=== PATIENT | female | born 1955 | race Caucasian/White ===

== ENCOUNTER 2016-07-07 12:10 | Day surgery (SDC) | payer MEDICAID ==
[2016-07-07] MEDS ORDERED: NS 1,000 ML IV SCH (12:45)
[2016-07-07] MEDS ORDERED: MIDAZOLAM 2 MG/2 ML VIAL ONE ×2 (13:34)
[2016-07-07] MEDS ORDERED: ONDANSETRON 4 MG/2 ML VIAL ONE (13:35)
[2016-07-07] MEDS ORDERED: fentaNYL 100 MCG/2 ML INJ ONE (13:35)
[2016-07-07] MEDS ORDERED: IOPAMIDOL (ISOVUE-M 300) 15 ML VIAL IV ONE (14:33)
[2016-07-07] MEDS ORDERED: TRIAMCINOLONE ACETONIDE 200 MG/5 ML MDV IM ONE (14:34)
[2016-07-07] MEDS ORDERED: morphINE SR 15 MG TAB PO ONE (15:00)
--- NOTE | 2016-07-07 18:04 | IR ---
Lumbar epidural steroid injection History: Low back pain and right lower extremity radiculopathy. Consent: Risks and benefits of the procedure were discussed in detail, and informed consent was obta ined. The patient accepted risks of lack of therapeutic benefit, internal bleeding, infection, and a ccidental dural puncture. Medications: Intravenous conscious sedation and analgesia were given under my supervision. Vital sign s, pulse oximetry, and electrocardiogram were monitored. The patient received 3 milligrams of Versed and 150 micrograms of fentanyl intravenously. 8 mg of Ondansetron were given intravenously, prophylac tically. Start time: 1355. End time: 1405. Fluoroscopy time in minutes: 0.7. Estimated exposure in mGy: 37.8. Technique: With the patient prone, the low back was prepped and draped in sterile fashion. 1% Xylocai ne was used for local anesthetic. Multiplanar fluoroscopic guidance was used to help place an 18-gaug e Touhy needle into the back of the spinal canal eccentric rightward at the level of the interspace a t L5-S1. Epidural position was confirmed with 2.5 mL of Isovue-M 300. Spot images were taken before a nd after injection of 80 mg of Kenalog (2 mL) and 3 mL of preservative-free 1% Xylocaine. Spot images were obtained before and after injection of steroid and analgesic. The patient tolerated the procedu re well and was taken to the Postprocedural Recovery area for observation. Epidurogram: Eccentric rightward epidural contrast extends from L4 through S1. Mild features of assistant professor of education tito disk degeneration are noted at L2-L3. A short, curved metal yessi to the left of the umbilicus is c ompatible with umbilical jewelry. Impression: Eccentric rightward lumbar epidural injection of long-acting steroid and rapid-acting ane sthetic via L5-S1. - - - - - - - - - - - - - - - - - - - - - - - - - - - - - - - - - - - - - - - - - - - - (PQRS Measures: Current medications were listed in the medical record, including all known prescript ions, [id number] medications, herbal medications, and nutritional supplements. Tobacco Use: Non e. Prophylactic antibiotic: Unnecessary. VTE prophylaxis: Ordered to begin within 24 hours of pr ocedure.)
== END 2016-07-07 15:20 | disposition home or self-care (01) ==
LOC: FIMAGING 12:10
PROVIDERS: ATTEND Family Medicine
PROC: 3E0R3BZ Introduction of Anesthetic Agent into Spinal Canal, Percutaneous Approach (ICD-10-PCS; 2016-07-07)
PROC: 3E0R33Z Introduction of Anti-inflammatory into Spinal Canal, Percutaneous Approach (ICD-10-PCS; principal; 2016-07-07 14:15)
DX: M54.5 Low back pain (principal); M54.16 Radiculopathy, lumbar region; I10 Essential (primary) hypertension; B19.9 Unspecified viral hepatitis without hepatic coma; F17.200 Nicotine dependence, unspecified, uncomplicated
CPT/HCPCS: J2250; J2405; J3010; J3301; Q9967

== ENCOUNTER 2016-08-17 13:07 | Emergency (ER) | payer MEDICAID ==
--- NOTE | 2016-08-17 13:32 | EDPHY ---
H & P Stated Complaint: R SIDED ABDOMINAL PAIN SINCE WEDNESDAY, SENT BY MD Time Seen by Provider: 08/17/16 13:32 HPI/ROS: HPI CHIEF COMPLAINT: Abdominal pain HISTORY OF PRESENT ILLNESS: This patient very pleasant 60-year-old female, she presents emergency room with right lower quadrant abdominal pain. Patient tells me on Wednesday she developed abdominal pain and generalized abdominal discomfort abdominal bloating with nausea. She takes chronic pain medicine for chronic back and neck pain. She presents emergency room due to ongoing right lower quadrant pain. She went saw her primary care doctor today and was referred to the emergency room for further evaluation of her abdominal pain. Patient currently tells me abdominal pain is 6/10 right lower quadrant nonradiating. She does have associated nausea with this. No vomiting. No diarrhea. Past Medical History: Chronic back pain, chronic neck pain, hypertension, osteoporosis, GERD, depression, ?COPD Past Surgical History: Tonsillectomy, tubal ligation, bursa removed from right knee Social History: denies daily use of drugs alcohol tobacco products Family History: noncontributory ROS REVIEW OF SYSTEMS: A comprehensive 10 point review of systems is otherwise negative aside from elements mentioned in the history of present illness. Exam Constitutional triage nursing summary reviewed, vital signs reviewed, awake/ alert. Eyes normal conjunctivae and sclera, EOMI, PERRLA. HENT normal inspection, atraumatic, moist mucus membranes, no epistaxis, neck supple/ no meningismus, no raccoon eyes. Respiratory clear to auscultation bilaterally, normal breath sounds, no respiratory distress, no wheezing. Cardiovascular rate normal, regular rhythm, no murmur, no edema, distal pulses normal. Gastrointestinal soft, tender palpation right lower quadrant,, no rebound, no guarding, normal bowel sounds, no distension, no pulsatile mass. Genitourinary no CVA tenderness. Musculoskeletal no midline vertebral tenderness, full range of motion, no calf swelling, no tenderness of extremities, no meningismus, good pulses, neurovascularly intact. Skin pink, warm, & dry, no rash, skin atraumatic. Neurologic awake, alert and oriented x 3, AAOx3, moves all 4 extremities equally, motor intact, sensory intact, CN II-XII intact, normal cerebellar, normal vision, normal speech. Psychiatric normal mood/affect. Heme/Lymph/Immune no lymphadenopathy. Differential diagnosis includes but is not limited to and in no particular order : Bowel obstruction, appendicitis, gallbladder disease, diverticulitis, colitis , enteritis, perforated viscus, gastritis, GERD, esophagitis, urinary tract infection, pyelonephritis, kidney stones Medical Decision Making: this patient had an IV established obtain blood work, patient be placed on full nurse monitoring, patient will need a CT scan abdomen pelvis with IV contrast rule out acute appendicitis. Will gently hydrated with IV fluids normal saline, IV Dilaudid 1 mg for pain control, IV Zofran 4 mg for nausea. Re-evaluation: 1532: Re-examination at this time abdomen is soft nontender no guarding or peritoneal signs. Blood work, CT has been reviewed. CT scan of the abdomen pelvis with IV contrast. The results of the study are negative for acute inflammatory process, specifically no evidence of acute appendicitis The study was read by Dr. Gray. I viewed the images myself on the PACS system. 1533; I did go over this patient's CT results with the patient. She is comfortable being discharged. Urinalysis pending at this time. She does understand she develops any worsening abdominal pain, fever vomiting to return to the emergency room. Source: Patient - Personal History Current Tetanus Diphtheria and Acellular Pertussis (TDAP): Yes Tetanus Vaccine Date: < 10 years - Medical/Surgical History Hx Asthma: No Hx Chronic Respiratory Disease: No Hx Diabetes: No Hx Cardiac Disease: Yes Hx Renal Disease: No Hx Cirrhosis: No Hx Alcoholism: No Hx HIV/AIDS: No Hx Splenectomy or Spleen Trauma: No Other PMH: chronic back pain, hypertension, depression, neck problems, ovarian cysts, right knee bursa sac removal, tubal ligation, tonsillectomy - Social History Smoking Status: Former smoker Constitutional: Initial Vital Signs Temperature (C) 36.9 C 08/17/16 13:15 Heart Rate 85 08/17/16 13:15 Respiratory Rate 16 08/17/16 13:15 Blood Pressure 150/91 H 08/17/16 13:15 O2 Sat (%) 90 L 08/17/16 13:15 O2 Delivery Mode Room Air Allergies/Adverse Reactions: No Known Allergies Allergy (Unverified 08/17/16 13:18) Home Medications: Medication Instructions Recorded Abilify 08/17/16 Amitriptyline HCl 08/17/16 Cymbalta 08/17/16 Escitalopram Oxalate 08/17/16 FLUTICASONE PROPIONATE 08/17/16 Fosamax 70 MG (*) 08/17/16 Hydrochlorothiazide 08/17/16 Lidocaine 5% 08/17/16 Linzess 08/17/16 Morphine Sulfate 08/17/16 Ondansetron 08/17/16 Oxycodone HCl 08/17/16 Pataday 08/17/16 Proair Hfa Icu (*) 08/17/16 Ranitidine HCl 08/17/16 Tizanidine HCl 08/17/16 Voltaren 08/17/16 Medical Decision Making - Data Points Laboratory Results: Laboratory Results 08/17/16 13:33 08/17/16 13:33 08/17/16 13:33 WBC 5.98 10^3/uL (3.80-9.50) RBC 5.19 10^6/uL (4.18-5.33) Hgb 15.8 g/dL (12.6-16.3) Hct 45.7 % (38.0-47.0) MCV 88.1 fL (81.5-99.8) MCH 30.4 pg (27.9-34.1) MCHC 34.6 g/dL (32.4-36.7) RDW 13.4 % (11.5-15.2) Plt Count 320 10^3/uL (150-400) MPV 8.8 fL (8.7-11.7) Neut % (Auto) 63.4 % (39.3-74.2) Lymph % (Auto) 27.1 % (15.0-45.0) [place] % (Auto) 7.5 % (4.5-13.0) Eos % (Auto) 1.0 % (0.6-7.6) Baso % (Auto) 0.5 % (0.3-1.7) Nucleat RBC Rel Count 0.0 % (0.0-0.2) Absolute Neuts (auto) 3.79 10^3/uL (1.70-6.50) Absolute Lymphs (auto) 1.62 10^3/uL (1.00-3.00) Absolute Monos (auto) 0.45 10^3/uL (0.30-0.80) Absolute Eos (auto) 0.06 10^3/uL (0.03-0.40) Absolute Basos (auto) 0.03 10^3/uL (0.02-0.10) Absolute Nucleated RBC 0.00 10^3/uL (0-0.01) Immature Gran % 0.5 % (0.0-1.1) Immature Gran # 0.03 10^3/uL (0.00-0.10) PT 12.4 SEC (12.0-15.0) INR 0.93 (0.83-1.16) APTT 25.1 SEC (23.0-38.0) VBG Lactic Acid 1.0 mmol/L (0.7-2.1) Sodium 143 mEq/L (134-144) Potassium 3.7 mEq/L (3.5-5.2) Chloride 104 mEq/L (97-110) Carbon Dioxide 26 mEq/l (22-31) Anion Gap 13 mEq/L (8-16) BUN 9 mg/dL (7-23) Creatinine 0.7 mg/dL (0.6-1.0) Estimated GFR > 60 Glucose 100 mg/dL (70-100) Calcium 9.5 mg/dL (8.5-10.4) Total Bilirubin 0.6 mg/dL (0.1-1.4) Conjugated Bilirubin 0.4 mg/dL (0.0-0.5) Unconjugated Bilirubin 0.2 mg/dL (0.0-1.1) AST 35 IU/L (14-46) ALT 35 IU/L (9-52) Alkaline Phosphatase 88 IU/L (38-126) Total Protein 7.9 g/dL (6.3-8.2) Albumin 4.7 g/dL (3.5-5.0) Lipase 36.0 IU/L (23-300) Medications Given: Discontinued Medications Hydromorphone HCl (Dilaudid) 0.5 mg IVP EDNOW ONE Stop: 08/17/16 13:41 Last Admin: 08/17/16 15:13 Dose: 0.5 mg Hydromorphone HCl (Dilaudid) 1 mg IVP EDNOW ONE Stop: 08/17/16 13:40 Last Admin: 08/17/16 13:50 Dose: 1 mg Sodium Chloride (Ns) 1,000 mls @ 0 mls/hr IV ONCE ONE PRN Reason: Wide Open Stop: 08/17/16 13:40 Last Admin: 08/17/16 13:50 Dose: 1,000 mls Sodium Chloride (Ns) 1,000 mls @ 0 mls/hr IV ONCE ONE PRN Reason: Wide Open Stop: 08/17/16 13:41 Last Admin: 08/17/16 15:12 Dose: 1,000 mls Ondansetron HCl (Zofran) 4 mg IVP EDNOW ONE Stop: 08/17/16 13:40 Last Admin: 08/17/16 13:51 Dose: 4 mg Ondansetron HCl (Zofran) 4 mg IVP EDNOW ONE Stop: 08/17/16 13:40 Last Admin: 08/17/16 15:12 Dose: Not Given Departure - Departure Disposition: Home, Routine, Self-Care Clinical Impression: Abdominal pain Qualifiers: Abdominal location: right lower quadrant Qualifier Code: (R10.31) Right lower quadrant pain Abdominal pain Qualifiers: Abdominal location: right lower quadrant Qualifier Code: (R10.31) Right lower quadrant pain Condition: Good Instructions: Acute Abdominal Pain (ED) Additional Instructions: 1. Return emergency room if develops any worsening symptoms questions or concerns includes worsening abdominal pain, fever, vomiting. Referrals: Edd Lomeli MD [Primary Care Provider] - As per Instructions
[2016-08-17] MEDS ORDERED: ONDANSETRON 4 MG/2 ML VIAL ONE (13:34)
[2016-08-17] MEDS ORDERED: ONDANSETRON 4 MG/2 ML VIAL IVP ONE ×2 (13:39)
[2016-08-17] MEDS ORDERED: NS 1,000 ML IV ONE ×2 (13:39→13:40)
[2016-08-17] MEDS ORDERED: HYDROmorphONE/DILAUDID 1 MG/ML SYR IVP ONE ×2 (13:39→13:40)
[2016-08-17 14:02] LABS: % IMMATURE GRANULYOCYTES 0.5 % (0.0-1.1); ABSOLUTE IMMATURE GRANULOCYTES 0.03 10^3/uL (0.00-0.10); ADD DIFF? NO; ADD MORPH? NO; ADD SCAN? NO; ATYPICAL LYMPHOCYTE FLAG 0 (0-99); FRAGMENT RBC FLAG 0 (0-99); HEMATOCRIT 45.7 % (38.0-47.0); HEMOGLOBIN 15.8 g/dL (12.6-16.3); LEFT SHIFT FLG 0 (0-99); LIPEMIA HEMOLYSIS FLAG 90 (0-99); MEAN CELL HEMOGLOBIN 30.4 pg (27.9-34.1); MEAN CELL HEMOGLOBIN CONCENTR. 34.6 g/dL (32.4-36.7); MEAN CELL VOLUME 88.1 fL (81.5-99.8); MEAN PLATELET VOLUME 8.8 fL (8.7-11.7); PLATELET CLUMPS FLAG 20 (0-99); PLATELET COUNT 320 10^3/uL (150-400); RED BLOOD CELL COUNT 5.19 10^6/uL (4.18-5.33); RED CELL DISTRIBUTION WIDTH 13.4 % (11.5-15.2)
[2016-08-17 14:15] LABS: APTT 25.1 SEC (23.0-38.0); INR 0.93 (0.83-1.16); PROTIME(PATIENT) 12.4 SEC (12.0-15.0)
[2016-08-17 14:21] LABS: ALANINE AMINOTRANSFERASE 35 IU/L (9-52); ALBUMIN 4.7 g/dL (3.5-5.0); ALKALINE PHOSPHATASE 88 IU/L (38-126); ANION GAP 13 mEq/L (8-16); ASPARTATE AMINOTRANSFERASE 35 IU/L (14-46); BILIRUBIN,TOTAL 0.6 mg/dL (0.1-1.4); BILIRUBIN-CONJUGATED 0.4 mg/dL (0.0-0.5); BILIRUBIN-UNCONJUGATED 0.2 mg/dL (0.0-1.1); CALCIUM 9.5 mg/dL (8.5-10.4); CARBON DIOXIDE 26 mEq/l (22-31); CHLORIDE 104 mEq/L (97-110); CREATININE 0.7 mg/dL (0.6-1.0); GLOMERULAR FILTRATION RATE > 60; GLUCOSE 100 mg/dL (70-100); POTASSIUM 3.7 mEq/L (3.5-5.2); SODIUM 143 mEq/L (134-144); TOTAL PROTEIN 7.9 g/dL (6.3-8.2)
[2016-08-17] MEDS ORDERED: IOPAMIDOL (ISOVUE-300) 100 ML BTL IV ONE (14:32)
--- NOTE | 2016-08-17 15:24 | CT ---
CT Scan of the Abdomen and Pelvis (With Contrast) 1442 hours History: Right-sided abdominal pain. Technique: Axial computed tomographic images of the abdomen and pelvis were obtained with the unevent ful intravenous administration of 90 mL Isovue-300 contrast. . Images were reviewed in multiple plane s. Dose reduction techniques were utilized. CT Abdomen and Pelvis Findings: Comparison to prior CT study of 07/13/2015. Lung bases: Normal. Liver: There are stable cysts within the left lobe of liver. No new or significant liver lesion is se en. Spleen: Normal. Gallbladder and Bile Ducts: Normal. Pancreas: Normal. Adrenals: Normal. Kidneys: No obstruction or solid masses. There are a few small less than 5 mm presumed cysts associat ed with each kidney similar to the prior study. Abdominal Aorta: No aneurysm. Pelvic structures: The uterus has a normal contour. The ovaries are normal in size. No adnexal mass i s seen. Bladder: Normal. Appendix: Normal. Bowel Loops: Normal. No bowel obstruction, ascites, or significant retroperitoneal lymphadenopathy. Skeletal system: Vertebral body heights are well-maintained. There are no significant lytic or scler otic osseous lesions. Impression: 1. Incidental cysts in the liver and kidneys stable in appearance. 2. No CT evidence of appendicitis, abscess or bowel obstruction. These findings were discussed by telephone with Dr. Kyle Fowler at 1523 hrs.
[2016-08-17 15:59] LABS: COLOR PALE YELLOW; LEUKOCYTE ESTERASE,URINE NEGATIVE (NEGATIVE); NITRITE,URINE NEGATIVE (NEGATIVE)
[2016-08-17] MEDS ORDERED: ONDANSETRON DISINTEGRATING 4 MG TAB ONE (16:03)
[2016-08-17] MEDS ORDERED: ONDANSETRON DISINTEGRATING 4 MG TAB PO ONE (16:04)
[2016-08-17 16:13] VITALS: BP 133/81; PULSE 88; RESP 18; TEMP 98; O2SAT 93
== END 2016-08-17 16:08 | disposition home or self-care (01) ==
DX: R10.31 Right lower quadrant pain (principal); Z87.891 Personal history of nicotine dependence; Z98.51 Tubal ligation status
CPT/HCPCS: 96374; J1170; J2405; Q9967

== ENCOUNTER 2016-09-22 15:37 | Emergency (ER) | payer MEDICAID ==
--- NOTE | 2016-09-22 16:25 | EDPHY ---
General Narrative: CHIEF COMPLAINT: Cough, fever HISTORY OF PRESENT ILLNESS: 2 day history of cough and fever. Symptoms started abruptly yesterday. Some body aches but no chills. Fever has been intermittently waxing wheezing with ibuprofen frequently. She has no chest pain. She does have a painful cough. She has no shortness of breath. She has no abdominal pain. No nausea or vomiting. No urinary complaints. The cough is mostly nonproductive. No particular ability to the severity of this. No other associated complaints or modifying factors. REVIEW OF SYSTEMS: Ten systems reviewed and are negative unless otherwise noted in the HPI PERTINENT MEDICAL HISTORY: EXAMINATION General Appearance: Alert, no distress Head: normocephalic, atraumatic Eyes: Pupils equal and round, no conjunctival pallor or injection ENT, Mouth: Mucous membranes moist . Uvula midline. No erythema or edema. Neck: Normal inspection, supple, non-tender . No meningismus. Respiratory: Lungs are clear to auscultation . No wheezing, rhonchi or crackles. Cardiovascular: Regular rate and rhythm . No murmur. Pulses intact distally prior Gastrointestinal: Abdomen is soft and nontender. No tympany or rigidity. Back: non-tender, no bony abnormalities Neurological: A&O, nonfocal, normal gait Skin: Warm and dry, no rash Extremities: Nontender, no pedal edema Psychiatric: Mood and affect normal DIFFERENTIAL DIAGNOSES: Including but not limited to Influenza, bronchitis, pneumonia, COPD, viral illness MDM: 4:15 p.m. cough and fever with normal auscultation. She does have a history of smoking but not COPD. She is in no acute distress. She has no other abnormality on examination. Influenza swab has been ordered as well as a chest x-ray. Plan for treatment for the possibility of pneumonia as she does have history of smoking and she has a granddaughter who was recently diagnosed with pneumonia. 5:10 p.m. cough with reports of fever at home. She is afebrile here and oxygenating well. No abnormality on auscultation. Possible atelectasis versus bronchitis on chest x-ray. No definite pneumonia or consolidation. I will treat her presumptively for pneumonia given that she is a smoker. Also provide eye prescription for Tessalon Perles and albuterol. She is to follow up with primary care physician and return here should her symptoms worsen. He is also to return for any chest pain. She is comfortable with this plan and discharged home stable condition. SUPERVISION: This patient was independently evaluated without the aide of supervising physician. - History Smoking Status: Former smoker - Objective Vital Signs: Initial Vital Signs Temperature (C) 98.4 F 09/22/16 15:45 Heart Rate 105 H 09/22/16 15:45 Respiratory Rate 16 09/22/16 15:45 Blood Pressure 116/72 09/22/16 15:45 O2 Sat (%) 93 09/22/16 15:45 O2 Delivery Mode Room Air Allergies/Adverse Reactions: No Known Allergies Allergy (Verified 09/22/16 15:49) Home Medications: Medication Instructions Recorded Abilify 08/17/16 Amitriptyline HCl 08/17/16 Cymbalta 08/17/16 FLUTICASONE PROPIONATE 08/17/16 Fosamax 70 MG (*) 08/17/16 Hydrochlorothiazide 08/17/16 Lidocaine 5% 08/17/16 Linzess 08/17/16 Morphine Sulfate 08/17/16 Ondansetron 08/17/16 Oxycodone HCl 08/17/16 Pataday 08/17/16 Proair Hfa Icu (*) 08/17/16 Ranitidine HCl 08/17/16 Tizanidine HCl 08/17/16 Voltaren 08/17/16 Acyclovir 09/22/16 Albuterol [Proventil Inhaler HFA 1 - 2 puffs IH Q4H PRN #1 mdi 09/22/16 (*)] Azithromycin [Zithromax] 250 mg PO DAILY #6 tab 09/22/16 Benzonatate [Tessalon Pearles (RX)] 100 mg PO Q8 PRN #15 cap 09/22/16 DULoxetine 09/22/16 Dexamethasone [Decadron 4 MG (*)] 8 mg PO DAILY #2 tab 09/22/16 Departure - Departure Disposition: Home, Routine, Self-Care Clinical Impression: Bronchitis Condition: Good Instructions: Acute Bronchitis (ED) Additional Instructions: medications as prescribed. Ibuprofen [id number] as needed every 6-8 hours. Return to ER for worsening symptoms, any chest pain or persistent fever greater than 2 days Referrals: NONE *PRIMARY CARE P,. [Primary Care Provider] - As per Instructions Ignacia Aguila MD [Medical Doctor] - As per Instructions Prescriptions: Albuterol [Proventil Inhaler HFA (*)] 1 - 2 puffs IH Q4H PRN #1 mdi PRN Reason: Short Of Breath/Dyspnea Azithromycin [Zithromax] 250 mg PO DAILY #6 tab Benzonatate [Tessalon Pearles (RX)] 100 mg PO Q8 PRN #15 cap PRN Reason: Cough, Mild Dexamethasone [Decadron 4 MG (*)] 8 mg PO DAILY #2 tab
[2016-09-22 17:50] VITALS: BP 103/62; PULSE 89; RESP 18; TEMP 98.8; O2SAT 91
== END 2016-09-22 17:50 | disposition home or self-care (01) ==
DX: J20.9 Acute bronchitis, unspecified (principal); Z87.891 Personal history of nicotine dependence

== ENCOUNTER 2016-09-27 11:18 | Inpatient (IN) | payer MEDICAID ==
[2016-09-27] MEDS ORDERED: ACETAMINOPHEN 500 MG TAB ONE (11:30)
--- NOTE | 2016-09-27 11:39 | CPEKG ---
Heart Rate: 71 RR Interval: 845 P-R Interval: 136 QRSD Interval: 92 QT Interval: 376 QTC Interval: 409 P [place]: 41 QRS [place]: 24 T Wave [place]: 51 EKG Severity - OTHERWISE NORMAL ECG - EKG Impression: SINUS RHYTHM EKG Impression: LOW VOLTAGE IN FRONTAL LEADS Electronically Signed By: Sammy Landa 27-Sep-2016 11:49:18
[2016-09-27] MEDS ORDERED: ACETAMINOPHEN 500 MG TAB PO ONE (11:40)
[2016-09-27] MEDS ORDERED: IPRATROPIUM/ALBUTEROL 3 ML DEYVIAL IH ONE (11:46)
--- NOTE | 2016-09-27 11:49 | EDPHY ---
H & P Time Seen by Provider: 09/27/16 11:39 HPI/ROS: CHIEF COMPLAINT: Can't hardly breathe HISTORY OF PRESENT ILLNESS: This 60-year-old woman was seen in the emergency department on the 22 of September and was prescribed azithromycin for bronchitis and had a negative chest x-ray for pneumonia. Symptoms started around September 20, and a continuous until today. She is feeling worse today with increasing cough and fever and chills. Symptoms are severe and worse with any exertion. She feels wheezy and has chest tightness. She is not coughing up sputum. Her symptoms are not markedly helped by the inhaler she was prescribed. REVIEW OF SYSTEMS: Eye: no change in vision ENT: no sore throat, left earache Cardiac: no chest pain or syncope Pulmonary: HPI, no hemoptysis Abdomen: no vomiting, diarrhea, abdominal pain Musculoskeletal: Chronic back pain unchanged Skin: no rash Neuro: Headache which is present only with cough. Constitutional: Fever and chills : Decreased urination, no dysuria A comprehensive 10 point review of systems is otherwise negative aside from elements mentioned in the history of present illness. PAST MEDICAL HISTORY: Includes hypertension, depression, chronic back pain, tonsillectomy, tubal ligation. Social history: Quit smoking 1 week ago General Appearance: Alert and conversant, cooperative. Eyes: No scleral icterus. ENT, Mouth: Normal mucous membranes. Normal tympanic membranes bilaterally. Normal pharynx. Respiratory: Bilateral expiratory wheezing with right-sided rhonchi. Oxygen saturation 86%. Cardiovascular: Regular rate and rhythm. Gastrointestinal: Abdomen is soft and non tender. Neurological: Alert and oriented x3. Normally conversant. Face symmetric, normal movement and sensation in all extremities. Skin: Warm and dry, no rashes. Musculoskeletal: No peripheral edema and no joint swelling. No calf tenderness. Psychiatric: Not agitated. Emergency Department course/MDM: DuoNeb, testing to include repeat chest x-ray and lactate and influenza. Supplemental oxygen applied to increase saturations to the 90s. Will require admission the hospital for hypoxemia and failure of outpatient oral antibiotic therapy. 1235: Results discussed with the patient, doubt acute bacterial infection at this time, needs to be admitted for continued therapy and supplemental oxygen with bronchospasm and hypoxemia. Ordered: albuterol nebulizer, Solu-Medrol 125 mg IV, Levaquin 750 mg IV. Does not meet SIRS criteria. Is febrile but respiratory rate less than 20, heart rate less than 100, white blood cell count 9.74. Patient was given her usual oral pain medication. Smoking Status: Former smoker Constitutional: Initial Vital Signs Temperature (C) 38 C 09/27/16 11:22 Heart Rate 86 09/27/16 11:22 Respiratory Rate 18 09/27/16 11:22 Blood Pressure 103/53 L 09/27/16 11:22 O2 Sat (%) 86 L 09/27/16 11:22 O2 Delivery Mode Nasal Cannula O2 (L/minute) 2 Allergies/Adverse Reactions: No Known Allergies Allergy (Verified 09/22/16 15:49) Home Medications: Medication Instructions Recorded ARIPiprazole [Abilify 10 mg (*)] 10 mg PO DAILY 09/27/16 Amitriptyline HCl [Elavil] 25 mg PO HS 09/27/16 DULoxetine [Cymbalta 30 MG (*)] 30 mg PO DAILY 09/27/16 Fluticasone Nasal [Flonase Nasal 1 sprays NASAL DAILY 09/27/16 [place] (RX)] Hydrochlorothiazide [HCTZ (*)] 25 mg PO DAILY 09/27/16 Ibuprofen [Motrin (*)] 800 mg PO Q6 PRN 09/27/16 Lidocaine 5% [Lidoderm 5% Patch 1 ea TD DAILY 09/27/16 (*)] Linaclotide [Linzess] 290 mcg PO DAILY 09/27/16 Morphine Sulfate [Ms Contin] 15 mg PO Q6H 09/27/16 Olopatadine HCl [Pataday] 1 drop EACHEYE HS PRN 09/27/16 Ondansetron Odt [Zofran Odt 4 mg 4 mg PO Q4 PRN 09/27/16 (*)] Tizanidine HCl 4 mg PO HS 09/27/16 Tizanidine HCl 4 mg PO QID PRN 09/27/16 oxyCODONE IR [Oxycodone Ir (*)] 20 mg PO QID 09/27/16 Medical Decision Making - Diagnostics EKG Interpretation: 12-lead EKG interpreted by me; official reading is in trace master. My interpretation is sinus rhythm with low voltage in frontal leads but no acute ischemic changes rate 71. Imagin: Chest x-ray personally interpreted by myself shows atelectasis left lower lobe and airway disease but not pneumonia. Differential Diagnosis: Differential diagnosis considered for shortness of breath including but not limited to pulmonary infectious process, COPD, asthma, pulmonary embolus and congestive heart failure. Consult/Admit Bed Type: [place] [id number] - Data Points Laboratory Results: Laboratory Results 09/27/16 11:33 09/27/16 11:33 09/27/16 09/27/16 09/27/16 11:57 11:33 11:33 WBC RBC Hgb Hct MCV MCH MCHC RDW Plt Count MPV Neut % (Auto) Lymph % (Auto) [place] % (Auto) Eos % (Auto) Baso % (Auto) Nucleat RBC Rel Count Absolute Neuts (auto) Absolute Lymphs (auto) Absolute Monos (auto) Absolute Eos (auto) Absolute Basos (auto) Absolute Nucleated RBC Immature Gran % Immature Gran # PT 13.3 SEC SEC (12.0-15.0) INR 1.02 (0.83-1.16) APTT 28.4 SEC SEC (23.0-38.0) VBG Lactic Acid Sodium 137 mEq/L mEq/L (134-144) Potassium 3.3 mEq/L L mEq/L (3.5-5.2) Chloride 99 mEq/L mEq/L (97-110) Carbon Dioxide 28 mEq/l mEq/l (22-31) Anion Gap 10 mEq/L mEq/L (8-16) BUN 12 mg/dL mg/dL (7-23) Creatinine 0.7 mg/dL mg/dL (0.6-1.0) Estimated GFR > 60 Glucose 102 mg/dL H mg/dL (70-100) Calcium 9.1 mg/dL mg/dL (8.5-10.4) Total Bilirubin 0.9 mg/dL mg/dL (0.1-1.4) Influenza Typ A,B (DFA) NEGATIVE FOR FLU (NEGATIVE) 09/27/16 09/27/16 11:33 11:33 WBC 9.74 10^3/uL H 10^3/uL (3.80-9.50) RBC 4.60 10^6/uL 10^6/uL (4.18-5.33) Hgb 13.4 g/dL g/dL (12.6-16.3) Hct 39.3 % % (38.0-47.0) MCV 85.4 fL fL (81.5-99.8) MCH 29.1 pg pg (27.9-34.1) MCHC 34.1 g/dL g/dL (32.4-36.7) RDW 13.8 % % (11.5-15.2) Plt Count 296 10^3/uL 10^3/uL (150-400) MPV 9.1 fL fL (8.7-11.7) Neut % (Auto) 70.1 % % (39.3-74.2) Lymph % (Auto) 20.0 % % (15.0-45.0) [place] % (Auto) 8.2 % % (4.5-13.0) Eos % (Auto) 1.0 % % (0.6-7.6) Baso % (Auto) 0.3 % % (0.3-1.7) Nucleat RBC Rel Count 0.0 % % (0.0-0.2) Absolute Neuts (auto) 6.82 10^3/uL H 10^3/uL (1.70-6.50) Absolute Lymphs (auto) 1.95 10^3/uL 10^3/uL (1.00-3.00) Absolute Monos (auto) 0.80 10^3/uL 10^3/uL (0.30-0.80) Absolute Eos (auto) 0.10 10^3/uL 10^3/uL (0.03-0.40) Absolute Basos (auto) 0.03 10^3/uL 10^3/uL (0.02-0.10) Absolute Nucleated RBC 0.00 10^3/uL 10^3/uL (0-0.01) Immature Gran % 0.4 % % (0.0-1.1) Immature Gran # 0.04 10^3/uL 10^3/uL (0.00-0.10) PT INR APTT VBG Lactic Acid 0.7 mmol/L mmol/L (0.7-2.1) Sodium Potassium Chloride Carbon Dioxide Anion Gap BUN Creatinine Estimated GFR Glucose Calcium Total Bilirubin Influenza Typ A,B (DFA) Medications Given: Discontinued Medications Acetaminophen (Tylenol) 1,000 mg PO EDNOW ONE Stop: 09/27/16 11:41 Last Admin: 09/27/16 11:43 Dose: 1,000 mg Albuterol (Proventil Neb) 3 ml IH EDNOW ONE Stop: 09/27/16 12:35 Last Admin: 09/27/16 12:57 Dose: 3 ml Albuterol/Ipratropium (Duoneb) 3 ml IH EDNOW ONE Stop: 09/27/16 11:47 Last Admin: 09/27/16 11:57 Dose: 3 ml Levofloxacin/Dextrose (Levaquin 750 Mg (Premix)) 150 mls @ 100 mls/hr IV EDNOW ONE PRN Reason: Protocol Stop: 09/27/16 14:04 Last Admin: 09/27/16 12:57 Dose: 150 mls Methylprednisolone Sodium Succinate (Solu-Medrol) 125 mg IVP EDNOW ONE Stop: 09/27/16 12:35 Last Admin: 09/27/16 12:57 Dose: 125 mg Morphine Sulfate (Ms Contin/Oramorph) 15 mg PO ONCE ONE Stop: 09/27/16 12:32 Last Admin: 09/27/16 12:58 Dose: 15 mg Oxycodone HCl (Oxycontin) 20 mg PO EDNOW ONE Stop: 09/27/16 12:32 Last Admin: 09/27/16 12:45 Dose: Not Given Oxycodone HCl (Oxycodone Ir) 20 mg PO ONCE ONE Stop: 09/27/16 12:40 Last Admin: 09/27/16 12:46 Dose: Not Given Oxycodone HCl (Oxycodone Ir) 20 mg PO EDNOW ONE Stop: 09/27/16 12:47 Last Admin: 09/27/16 12:56 Dose: 20 mg Departure - Departure Disposition: [facility] Acute Clinical Impression: Hypoxemia Acute bronchitis Qualifiers: Bronchitis organism: unspecified organism Qualified Code(s): J20.9 - Acute bronchitis, unspecified Condition: Fair
[2016-09-27 11:51] LABS: % IMMATURE GRANULYOCYTES 0.4 % (0.0-1.1); ABSOLUTE IMMATURE GRANULOCYTES 0.04 10^3/uL (0.00-0.10); ADD DIFF? NO; ADD MORPH? NO; ADD SCAN? NO; ATYPICAL LYMPHOCYTE FLAG 40 (0-99); FRAGMENT RBC FLAG 0 (0-99); HEMATOCRIT 39.3 % (38.0-47.0); HEMOGLOBIN 13.4 g/dL (12.6-16.3); LEFT SHIFT FLG 0 (0-99); LIPEMIA HEMOLYSIS FLAG 90 (0-99); MEAN CELL HEMOGLOBIN 29.1 pg (27.9-34.1); MEAN CELL HEMOGLOBIN CONCENTR. 34.1 g/dL (32.4-36.7); MEAN CELL VOLUME 85.4 fL (81.5-99.8); MEAN PLATELET VOLUME 9.1 fL (8.7-11.7); PLATELET CLUMPS FLAG 0 (0-99); PLATELET COUNT 296 10^3/uL (150-400); RED CELL DISTRIBUTION WIDTH 13.8 % (11.5-15.2)
[2016-09-27 12:01] LABS: INR 1.02 (0.83-1.16); PROTIME(PATIENT) 13.3 SEC (12.0-15.0)
[2016-09-27 12:02] LABS: APTT 28.4 SEC (23.0-38.0)
[2016-09-27 12:12] LABS: ANION GAP 10 mEq/L (8-16); BILIRUBIN,TOTAL 0.9 mg/dL (0.1-1.4); CALCIUM 9.1 mg/dL (8.5-10.4); CARBON DIOXIDE 28 mEq/l (22-31); CHLORIDE 99 mEq/L (97-110); CREATININE 0.7 mg/dL (0.6-1.0); GLOMERULAR FILTRATION RATE > 60; GLUCOSE 102 mg/dL (70-100); POTASSIUM 3.3 mEq/L (3.5-5.2); SODIUM 137 mEq/L (134-144)
[2016-09-27] MEDS ORDERED: morphINE SR 15 MG TAB PO ONE (12:31)
[2016-09-27] MEDS ORDERED: ALBUTEROL 3 ML DEYVIAL IH ONE (12:34)
[2016-09-27] MEDS ORDERED: methylPREDNISolone SOD SUCC 125 MG/2 ML VIAL IVP ONE (12:34)
[2016-09-27] MEDS ORDERED: oxyCODONE IR 15 MG TAB PO ONE (12:39)
[2016-09-27] MEDS ORDERED: oxyCODONE IR 5 MG TAB ONE (12:42)
[2016-09-27] MEDS ORDERED: oxyCODONE IR 5 MG TAB PO ONE (12:46)
[2016-09-27] MEDS ORDERED: ALBUTEROL 3 ML DEYVIAL IH PRN (13:13)
[2016-09-27] MEDS ORDERED: ACETAMINOPHEN 325 MG TAB PO PRN (13:13)
[2016-09-27] MEDS ORDERED: ONDANSETRON DISINTEGRATING 4 MG TAB PO PRN (13:13)
[2016-09-27] MEDS ORDERED: ONDANSETRON 4 MG/2 ML VIAL IVP PRN (13:13)
[2016-09-27] MEDS ORDERED: IBUPROFEN 800 MG TAB PO PRN (13:18)
[2016-09-27] MEDS ORDERED: OLOPATADINE 0.1% 5 ML OPHT.BTL EACHEYE PRN (13:18)
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
[2016-09-27] MEDS: morphINE SR 15 MG TAB PO SCH ×2 (15:30→20:05)
[2016-09-27] MEDS: oxyCODONE IR 5 MG TAB PO SCH ×2 (16:58→20:06)
[2016-09-27] MEDS: IPRATROPIUM/ALBUTEROL 3 ML DEYVIAL IH SCH ×2 (17:04→20:25)
[2016-09-27] MEDS: AMITRIPTYLINE HCL 25 MG TAB PO SCH (20:05)
[2016-09-28] MEDS: morphINE SR 15 MG TAB PO SCH ×4 (01:34→21:46)
[2016-09-28 04:50] LABS: % IMMATURE GRANULYOCYTES 0.5 % (0.0-1.1); ABSOLUTE IMMATURE GRANULOCYTES 0.05 10^3/uL (0.00-0.10); ADD DIFF? NO; ADD MORPH? NO; ADD SCAN? NO; ATYPICAL LYMPHOCYTE FLAG 0 (0-99); FRAGMENT RBC FLAG 0 (0-99); HEMATOCRIT 35.6 % (38.0-47.0); LEFT SHIFT FLG 0 (0-99); LIPEMIA HEMOLYSIS FLAG 80 (0-99); MEAN CELL HEMOGLOBIN 29.5 pg (27.9-34.1); MEAN CELL HEMOGLOBIN CONCENTR. 33.7 g/dL (32.4-36.7); MEAN CELL VOLUME 87.5 fL (81.5-99.8); MEAN PLATELET VOLUME 9.2 fL (8.7-11.7); PLATELET CLUMPS FLAG 10 (0-99); PLATELET COUNT 311 10^3/uL (150-400); RED BLOOD CELL COUNT 4.07 10^6/uL (4.18-5.33); RED CELL DISTRIBUTION WIDTH 13.5 % (11.5-15.2)
[2016-09-28 05:00] LABS: ANION GAP 10 mEq/L (8-16); CALCIUM 9.2 mg/dL (8.5-10.4); CARBON DIOXIDE 27 mEq/l (22-31); CHLORIDE 100 mEq/L (97-110); CREATININE 0.6 mg/dL (0.6-1.0); GLOMERULAR FILTRATION RATE > 60; GLUCOSE 237 mg/dL (70-100); POTASSIUM 3.8 mEq/L (3.5-5.2); SODIUM 137 mEq/L (134-144)
[2016-09-28] MEDS: oxyCODONE IR 5 MG TAB PO SCH ×4 (05:29→21:46)
[2016-09-28] MEDS: IPRATROPIUM/ALBUTEROL 3 ML DEYVIAL IH SCH ×4 (05:33→21:25)
[2016-09-28] MEDS ORDERED: IOPAMIDOL (ISOVUE 370) 100 ML BTL IV ONE (08:58)
[2016-09-28] MEDS ORDERED: levOFLOXACIN 500 MG/DEXTROSE 100 ML IV SCH (09:00)
[2016-09-28] MEDS: predniSONE 20 MG TAB PO SCH (09:57)
[2016-09-28] MEDS: ARIPiprazole 10 MG TAB PO SCH (09:57)
[2016-09-28] MEDS: LIDOCAINE 5% 1 EA PATCH TD SCH (09:57)
[2016-09-28] MEDS: HYDROCHLOROTHIAZIDE 25 MG TAB PO SCH (09:57)
[2016-09-28] MEDS: DULoxetine 30 MG CAP PO SCH (09:57)
[2016-09-28] MEDS: ENOXAPARIN 40 MG/0.4 ML SYR SC SCH (09:58)
[2016-09-28] MEDS: FLUTICASONE NASAL 120 SPRAYS/16 GM MDI EACHNARE SCH (09:59)
[2016-09-28] MEDS ORDERED: MAGNESIUM HYDROXIDE 30 ML UDCUP PO PRN (10:53)
[2016-09-28] MEDS ORDERED: BISACODYL 10 MG SUPP PR PRN (10:53)
[2016-09-28] MEDS ORDERED: LACTULOSE 20 GM/30 ML UDCUP PO PRN (10:53)
[2016-09-28] MEDS: POLYETHYLENE GLYCOL 3350 17 GM PKT PO PRN (12:05)
--- NOTE | 2016-09-28 14:01 | HOSPPROG ---
Hospitalist Progress Note Assessment/Plan: # Community-acquired pneumonia- chest x-ray ( personally reviewed and interpreted) new left lower lobe infiltrate - Blood cultures - NGTD patient remains very dyspneic overnight reports very little improvement in her cough or breathlessness reports persistent chest tightness with inspiration in the subxiphoid area - check CT PE to rule out pulmonary embolism and visualized lung parenchyma - continue empiric levofloxacin # Acute hypoxic respiratory failure -2/2 community-acquired pneumonia and reactive airways- wheezing on examination oxygen saturations 92% on 3 L - continue antibiotics - continue inhaled beta agonists - continue p.o. prednisone - rule out PE as above # chronic musculoskeletal pain on continuous narcotics- continue home medication - start aggressive bowel regimen # prophylaxis Lovenox # diet regular # disposition greater than 2 midnights as the patient requiring ongoing aggressive pulmonary care for community-acquired pneumonia I have discussed the case with the RN- will send patient for additional CT imaging to rule out pulmonary embolism Subjective: remains very dyspneic Objective: Vital Signs Temp Pulse Resp BP Pulse Ox 36.6 C 97 10 L 122/55 H 93 09/28/16 11:08 09/28/16 11:08 09/28/16 11:08 09/28/16 11:08 09/28/16 11:08 Laboratory Results 09/28/16 04:15 09/28/16 04:15 09/27/16 09/28/16 09/29/16 05:59 05:59 05:59 Intake Total 150 Balance 150 PT 13.3 SEC (12.0-15.0) 09/27/16 11:33 INR 1.02 (0.83-1.16) 09/27/16 11:33 - Physical Exam Constitutional: appears nourished Eyes: anicteric sclera Ears, Nose, Mouth, Throat: moist mucous membranes Cardiovascular: regular rate and rhythym Respiratory: no respiratory distress, expiratory wheeze Gastrointestinal: normoactive bowel sounds, soft, non-tender abdomen Genitourinary: no bladder fullness Skin: warm, normal color Musculoskeletal: No asymmetric calves Neurologic: AAOx3 Psychiatric: interacting appropriately Lymph, Heme, Immunologic: no cervical LAD ICD10 Worksheet Patient Problems: Problems Problem Status Onset Acute bronchitis Acute Hypoxemia Acute Chest pain Acute
[2016-09-28] MEDS ORDERED: PNEUMOCOCCAL 0.5ML VACCINE VIAL IM ONE (15:45)
[2016-09-28] MEDS ORDERED: TEMAZEPAM 15 MG CAP PO PRN ×2 (19:55→23:20)
[2016-09-28] MEDS: AMITRIPTYLINE HCL 25 MG TAB PO SCH (21:47)
[2016-09-28] MEDS: SENNOSIDES/DOCUSATE SODIUM TAB PO SCH (21:47)
[2016-09-28] MEDS: PATCH REMOVAL 1 EA PATCH TD SCH (23:34)
[2016-09-29] MEDS: morphINE SR 15 MG TAB PO SCH ×5 (04:18→23:31)
[2016-09-29] MEDS: oxyCODONE IR 5 MG TAB PO SCH ×4 (04:20→23:31)
[2016-09-29 05:03] LABS: ANION GAP 10 mEq/L (8-16); CALCIUM 9.5 mg/dL (8.5-10.4); CARBON DIOXIDE 27 mEq/l (22-31); CHLORIDE 103 mEq/L (97-110); CREATININE 0.6 mg/dL (0.6-1.0); GLOMERULAR FILTRATION RATE > 60; GLUCOSE 140 mg/dL (70-100); POTASSIUM 4.2 mEq/L (3.5-5.2); SODIUM 140 mEq/L (134-144)
[2016-09-29] MEDS: IPRATROPIUM/ALBUTEROL 3 ML DEYVIAL IH SCH ×4 (06:15→21:04)
[2016-09-29] MEDS: ENOXAPARIN 40 MG/0.4 ML SYR SC SCH (08:37)
[2016-09-29] MEDS: HYDROCHLOROTHIAZIDE 25 MG TAB PO SCH (08:37)
[2016-09-29] MEDS: predniSONE 20 MG TAB PO SCH (08:38)
[2016-09-29] MEDS: SENNOSIDES/DOCUSATE SODIUM TAB PO SCH ×2 (08:38→21:24)
[2016-09-29] MEDS: ARIPiprazole 10 MG TAB PO SCH (08:38)
[2016-09-29] MEDS: DULoxetine 30 MG CAP PO SCH (08:38)
[2016-09-29] MEDS: LIDOCAINE 5% 1 EA PATCH TD SCH (08:40)
[2016-09-29] MEDS: FLUTICASONE NASAL 120 SPRAYS/16 GM MDI EACHNARE SCH (08:41)
[2016-09-29] MEDS: POLYETHYLENE GLYCOL 3350 17 GM PKT PO PRN (09:02)
--- NOTE | 2016-09-29 11:41 | HOSPPROG ---
Hospitalist Progress Note Assessment/Plan: # Community-acquired pneumonia- CT PE ( personally reviewed and interpreted) no PE - left lower lobe infiltrate - Blood cultures remain NGTD dyspnea has improved some overnight- still with lightheadedness and weakness when ambulating to the bathroom - continue empiric levofloxacin # Acute hypoxic respiratory failure -2/2 community-acquired pneumonia and reactive airways- wheezing diffusely still on examination oxygen saturations 93% on 2 L - continue antibiotics - continue inhaled beta agonists - continue p.o. prednisone - [place] suspect she will have wound remaining oxygen needs post disposition # chronic musculoskeletal pain on continuous narcotics- continue home medication- creatinine normal this a.m. - start aggressive bowel regimen # prophylaxis Lovenox # diet regular # disposition greater than 2 midnights as the patient requiring ongoing aggressive pulmonary care for community-acquired pneumonia I have discussed the case with the RN- we will continue current care with anticipated disposition home with supplemental oxygen tomorrow Subjective: breathing at rest is easier exertion still very dyspneic Objective: Vital Signs Temp Pulse Resp BP Pulse Ox 36.6 C 79 20 130/75 H 93 09/29/16 11:16 09/29/16 11:16 09/29/16 11:16 09/29/16 11:16 09/29/16 11:16 Laboratory Results 09/29/16 04:13 09/28/16 09/29/16 09/30/16 05:59 05:59 05:59 Intake Total 450 Balance 450 PT 13.3 SEC (12.0-15.0) 09/27/16 11:33 INR 1.02 (0.83-1.16) 09/27/16 11:33 - Physical Exam Constitutional: appears nourished Eyes: anicteric sclera Ears, Nose, Mouth, Throat: moist mucous membranes Cardiovascular: regular rate and rhythym Respiratory: expiratory wheeze Gastrointestinal: normoactive bowel sounds Genitourinary: no bladder fullness Skin: warm, normal color Musculoskeletal: No asymmetric calves Neurologic: AAOx3 Psychiatric: interacting appropriately, not anxious Lymph, Heme, Immunologic: no cervical LAD ICD10 Worksheet Patient Problems: Problems Problem Status Onset Acute bronchitis Acute Hypoxemia Acute Chest pain Acute
[2016-09-29] MEDS: AMITRIPTYLINE HCL 25 MG TAB PO SCH (21:24)
[2016-09-29] MEDS: PATCH REMOVAL 1 EA PATCH TD SCH (23:14)
[2016-09-30] MEDS: oxyCODONE IR 5 MG TAB PO SCH ×3 (05:06→18:03)
[2016-09-30] MEDS: morphINE SR 15 MG TAB PO SCH ×3 (05:06→18:03)
[2016-09-30] MEDS: IPRATROPIUM/ALBUTEROL 3 ML DEYVIAL IH SCH ×4 (05:39→21:34)
[2016-09-30] MEDS: HYDROCHLOROTHIAZIDE 25 MG TAB PO SCH (08:10)
[2016-09-30] MEDS: LIDOCAINE 5% 1 EA PATCH TD SCH (08:10)
[2016-09-30] MEDS: predniSONE 20 MG TAB PO SCH (08:10)
[2016-09-30] MEDS: SENNOSIDES/DOCUSATE SODIUM TAB PO SCH ×2 (08:10→20:59)
[2016-09-30] MEDS: ARIPiprazole 10 MG TAB PO SCH (08:10)
[2016-09-30] MEDS: DULoxetine 30 MG CAP PO SCH (08:10)
[2016-09-30] MEDS: FLUTICASONE NASAL 120 SPRAYS/16 GM MDI EACHNARE SCH (08:11)
[2016-09-30] MEDS: ENOXAPARIN 40 MG/0.4 ML SYR SC SCH (08:12)
--- NOTE | 2016-09-30 08:20 | HOSPPROG ---
Hospitalist Progress Note Assessment/Plan: patient is a 60-year-old female who presented to the emergency room with progressive shortness of breath and associated cough. Today is my 1st encounter with the patient. Chart reviewed. # Community-acquired pneumonia- - CT - no PE - left lower lobe infiltrate - Blood cultures NGTD - continue empiric levofloxacin # Acute hypoxic respiratory failure -2/2 community-acquired pneumonia and reactive airways- wheezing + rhonchi on examination - oxygen saturations 93% on 2 L - continue antibiotics - continue inhaled beta agonists - continue p.o. prednisone - [place]/ she will need O2 at dc # chronic musculoskeletal pain on continuous narcotics- continue home medication- creatinine normal this a.m. - start aggressive bowel regimen # prophylaxis Lovenox # disposition:pending/ still short of breath Subjective: Gisela is feeling better, but continues to be short of breath Objective: Vital Signs Temp Pulse Resp BP Pulse Ox 36.6 C 68 18 133/78 H 94 09/30/16 03:41 09/30/16 03:41 09/30/16 03:41 09/30/16 03:41 09/30/16 03:41 Laboratory Results 09/29/16 04:13 09/29/16 09/30/16 10/01/16 05:59 05:59 05:59 Intake Total 450 Balance 450 PT 13.3 SEC (12.0-15.0) 09/27/16 11:33 INR 1.02 (0.83-1.16) 09/27/16 11:33 - Physical Exam Constitutional: no apparent distress, appears nourished, not in pain Eyes: PERRL Ears, Nose, Mouth, Throat: hearing normal Cardiovascular: no murmur, rub, or gallop Respiratory: expiratory wheeze, rhonchi Gastrointestinal: normoactive bowel sounds Skin: warm Musculoskeletal: no muscle tenderness Neurologic: AAOx3 Psychiatric: interacting appropriately, not anxious ICD10 Worksheet Patient Problems: Problems Problem Status Onset Acute bronchitis Acute Hypoxemia Acute Chest pain Acute
[2016-09-30] MEDS: guaiFENesin 600 MG TAB.ER PO SCH ×2 (14:34→20:59)
[2016-09-30] MEDS ORDERED: TEMAZEPAM 15 MG CAP PO PRN (19:58)
[2016-09-30] MEDS: AMITRIPTYLINE HCL 25 MG TAB PO SCH (20:59)
[2016-09-30] MEDS: PATCH REMOVAL 1 EA PATCH TD SCH (21:05)
[2016-10-01] MEDS: morphINE SR 15 MG TAB PO SCH ×3 (00:05→11:52)
[2016-10-01] MEDS: oxyCODONE IR 5 MG TAB PO SCH ×3 (00:05→11:51)
[2016-10-01] MEDS: IPRATROPIUM/ALBUTEROL 3 ML DEYVIAL IH SCH ×2 (06:00→10:18)
--- NOTE | 2016-10-01 09:09 | HOSPPROG ---
Hospitalist Progress Note Assessment/Plan: patient is a 60-year-old female who presented to the emergency room with progressive shortness of breath and associated cough. # Community-acquired pneumonia- - CT - no PE - left lower lobe infiltrate - Blood cultures NGTD - continue levofloxacin # Acute hypoxic respiratory failure -2/2 community-acquired pneumonia and reactive airways- wheezing + rhonchi on examination - oxygen saturations 93% on 2 L - continue antibiotics - continue inhaled beta agonists - continue p.o. prednisone # chronic musculoskeletal pain on continuous narcotics- continue home medication- - start aggressive bowel regimen # prophylaxis Lovenox # disposition:dc today Subjective: Gisela is feeling much better today/ no complaints. Objective: Vital Signs Temp Pulse Resp BP Pulse Ox 36.6 C 77 18 117/73 95 10/01/16 04:00 10/01/16 07:39 10/01/16 07:39 10/01/16 07:39 10/01/16 07:39 Laboratory Results 09/29/16 04:13 PT 13.3 SEC (12.0-15.0) 09/27/16 11:33 INR 1.02 (0.83-1.16) 09/27/16 11:33 - Physical Exam Constitutional: no apparent distress, appears nourished, not in pain Eyes: PERRL Ears, Nose, Mouth, Throat: hearing normal Cardiovascular: regular rate and rhythym Respiratory: no respiratory distress, rhonchi (few at right base, but lung sounds much improved since yesterday) Gastrointestinal: normoactive bowel sounds Skin: warm Musculoskeletal: full muscle strength Neurologic: AAOx3 Psychiatric: interacting appropriately, not anxious ICD10 Worksheet Patient Problems: Problems Problem Status Onset Acute bronchitis Acute Hypoxemia Acute Chest pain Acute
[2016-10-01] MEDS: ARIPiprazole 10 MG TAB PO SCH (09:12)
[2016-10-01] MEDS: DULoxetine 30 MG CAP PO SCH (09:12)
[2016-10-01] MEDS: HYDROCHLOROTHIAZIDE 25 MG TAB PO SCH (09:12)
[2016-10-01] MEDS: SENNOSIDES/DOCUSATE SODIUM TAB PO SCH (09:12)
[2016-10-01] MEDS: predniSONE 20 MG TAB PO SCH (09:12)
[2016-10-01] MEDS: ENOXAPARIN 40 MG/0.4 ML SYR SC SCH (09:13)
[2016-10-01] MEDS: LIDOCAINE 5% 1 EA PATCH TD SCH (09:13)
[2016-10-01] MEDS: FLUTICASONE NASAL 120 SPRAYS/16 GM MDI EACHNARE SCH (09:19)
[2016-10-01] MEDS: guaiFENesin 600 MG TAB.ER PO SCH (09:39)
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
[2016-10-01 11:30] VITALS: BP 104/60; PULSE 87; RESP 16; TEMP 97.9; O2SAT 93
== END 2016-10-01 12:58 | disposition home or self-care (01) | DRG 193 ==
LOC: INTOOBSV 13:08 → F3E 14:05 → OBSVTOIN 09-28 13:57
PROVIDERS: ADMIT Hospitalist; ATTEND Hospitalist
DX: J18.9 Pneumonia, unspecified organism (principal); J96.01 Acute respiratory failure with hypoxia; J45.909 Unspecified asthma, uncomplicated; G89.29 Other chronic pain
CPT/HCPCS: 96365; G0009; G0378; J1650; J1956; Q9967

== ENCOUNTER → 2016-11-20 | Outpatient (CLI) | payer MEDICAID | LOC: FIMAGING 14:57 | PROVIDERS: ATTEND Registered Nurse | DX: Z12.31 Encounter for screening mammogram for malignant neoplasm of breast (principal) | CPT/HCPCS: G0202 ==

== ENCOUNTER 2016-12-05 13:49 | Emergency (ER) | payer MEDICAID ==
[2016-12-05 13:54] VITALS: RESP 16
--- NOTE | 2016-12-05 14:44 | EDPHY ---
H & P Stated Complaint: fall of stairs hitting head and knee last night. + loc, TSANG Time Seen by Provider: 12/05/16 14:31 HPI/ROS: CHIEF COMPLAINT: Fell and hit head HISTORY OF PRESENT ILLNESS: This is a 61-year-old female presenting to the emergency department with family. Patient states last night she missed a step going down her daughter stairs fell down 2 steps hitting the floor and the wall. daughter reports a positive loss of consciousness, patient states she is just kind of felt fuzzy with a headache since last night, intermittent episodes of blurred vision with nausea, denies any vomiting. Also complaining of bilateral knee pain she thinks she remembers when she fell she landed on bilat knees, complaining of increased pain to left knee with ambulation and movement. Denies any other injuries REVIEW OF SYSTEMS: Constitutional: No fever, no chills. Eyes: No discharge. And intermittent blurred vision ENT: No sore throat. Cardiovascular: No chest pain, no palpitations. Respiratory: No cough, no shortness of breath. Gastrointestinal: No abdominal pain, no vomiting. Genitourinary: No hematuria. Musculoskeletal: Chronic back pain. bilateral knee pain Skin: No rashes. Neurological: headache. Source: Patient, Family - Personal History Current Tetanus/Diphtheria Vaccine: Yes Current Tetanus Diphtheria and Acellular Pertussis (TDAP): Yes Tetanus Vaccine Date: < 10 years - Medical/Surgical History Hx Asthma: No Hx Chronic Respiratory Disease: No Hx Diabetes: No Hx Cardiac Disease: Yes Hx Renal Disease: No Hx Cirrhosis: No Hx Alcoholism: No Hx HIV/AIDS: No Hx Splenectomy or Spleen Trauma: No Other PMH: chronic back pain, hypertension, depression, neck problems, ovarian cysts, right knee bursa sac removal, tubal ligation, tonsillectomy, osteoporosis - Social History Smoking Status: Former smoker - Physical Exam Exam: General Appearance: Alert, no distress. HEENT: Contusion noted to right parietal. Pupils equal and round no pallor or injection. Mucous membranes moist. No oral injuries noted, no malocclusion. TMs clear bilaterally Respiratory: There are no retractions, lungs are clear to auscultation. Cardiovascular: Regular rate and rhythm. Gastrointestinal: Abdomen is soft and nontender, no masses, bowel sounds normal. Neurological: No focal deficits patient ambulatory with a cane assist Skin: Warm and dry, no rashes. Musculoskeletal: Vertebral cervical spine nontender on palpation. Full range of motion Extremities: Abrasion and ecchymosis noted to bilateral knee. Left knee decreased range of motion due to pain no obvious deformity noted. Positive CMS intact Psychiatric: Patient is oriented X 3, there is no agitation. Constitutional: Initial Vital Signs Temperature (C) 36.5 C 12/05/16 13:50 Heart Rate 83 12/05/16 13:50 Respiratory Rate 16 12/05/16 13:50 Blood Pressure 141/82 H 12/05/16 13:50 O2 Sat (%) 93 12/05/16 13:50 O2 Delivery Mode Room Air Allergies/Adverse Reactions: No Known Allergies Allergy (Verified 09/22/16 15:49) Home Medications: Medication Instructions Recorded ARIPiprazole [Abilify 10 mg (*)] 10 mg PO DAILY 09/27/16 Amitriptyline HCl [Elavil] 25 mg PO HS 09/27/16 DULoxetine [Cymbalta 30 MG (*)] 30 mg PO DAILY 09/27/16 Fluticasone Nasal [Flonase Nasal 1 sprays NASAL DAILY 09/27/16 [place]] Hydrochlorothiazide [HCTZ (*)] 25 mg PO DAILY 09/27/16 Ibuprofen [Motrin (*)] 800 mg PO Q6 PRN 09/27/16 Lidocaine 5% [Lidoderm 5% Patch 1 ea TD DAILY 09/27/16 (*)] Linaclotide [Linzess] 290 mcg PO DAILY 09/27/16 Morphine Sulfate [Ms Contin] 15 mg PO Q6H 09/27/16 Olopatadine HCl [Pataday] 1 drop EACHEYE HS PRN 09/27/16 Ondansetron Odt [Zofran Odt 4 mg 4 mg PO Q4 PRN 09/27/16 (*)] Tizanidine HCl 4 mg PO HS 09/27/16 Tizanidine HCl 4 mg PO QID PRN 09/27/16 oxyCODONE IR [Oxycodone Ir (*)] 20 mg PO QID 09/27/16 Polyethylene Glycol 3350 [Miralax 17 gm PO DAILY PRN #0 pkt 10/01/16 17 gm (*)] Sennosides/Docusate Sodium 1 - 2 tab PO BID #0 tab 10/01/16 [Senokot-S] guaiFENesin [Mucinex 600 MG (*)] 1,200 mg PO BID #0 tab.er 10/01/16 levOFLOXACIN [levAQUIN (*)] 750 mg PO DAILY #4 tab 10/01/16 predniSONE 40 mg PO DAILY #11 tablet 10/01/16 Lipitor 12/05/16 Medical Decision Making - Diagnostics Imaging Results: Imaging Impressions Head CT 12/05/16 14:45 Impression: Head CT within normal limits. Results called to Daniella Connor General information for patients regarding this examination can be found at [email or web address]. If you have questions or comments about this report, please contact me at (hospital) or [phone] (cell). Knee X-Ray 12/05/16 14:45 Impression: Nothing acute identified. ED Course/Re-evaluation: Discussed ED plan of care: CT head, and left knee x-ray 1530: spoke with Dr. Keller negative CT head 1540: Negative x-ray of left knee no acute fracture. Discussed with patient utilizing knee immobilizer. Discharge home---> stable, discussed discharge instructions with patient Differential Diagnosis: Other differential diagnosis considered but not limited to subarachnoid hemorrhage, skull fracture, ligamentous injury and patellar fracture - Data Points Medications Given: Discontinued Medications Oxycodone/Acetaminophen (Percocet 5/325) 2 tab PO EDNOW ONE Stop: 12/05/16 15:39 Last Admin: 12/05/16 15:56 Dose: 2 tab Departure - Departure Disposition: Home, Routine, Self-Care Clinical Impression: Head injury Qualifiers: Encounter type: initial encounter Qualified Code(s): S09.90XA - Unspecified injury of head, initial encounter Left knee sprain Qualifiers: Encounter type: initial encounter Involved ligament of knee: unspecified ligament Qualified Code(s): S83.92XA - Sprain of unspecified site of left knee, initial encounter Condition: Good Instructions: Concussion (ED), Head Injury (ED), Knee Immobilizer (ED) Additional Instructions: Discussed discharge instructions 1. Elevate extremity as needed, ice for any swelling 2. Ibuprofen and Tylenol as needed 3. Monitor for any changes to mentation, such as: Blurred vision headache unresolving, loss of balance if any of these occur return to the ER 4. Follow up with your primary care provider this week Referrals: Ana Cristina Lyn DO [Primary Care Provider] - As per Instructions
[2016-12-05] MEDS ORDERED: OXYCODONE/APAP 5/325 TAB PO ONE (15:38)
[2016-12-05 16:09] VITALS: BP 145/82; PULSE 76; TEMP 98.1; O2SAT 95
== END 2016-12-05 16:09 | disposition home or self-care (01) ==
DX: S09.90XA Unspecified injury of head, initial encounter (principal); S83.92XA Sprain of unspecified site of left knee, initial encounter; I10 Essential (primary) hypertension; Z87.891 Personal history of nicotine dependence; W10.9XXA Fall (on) (from) unspecified stairs and steps, initial encounter

== ENCOUNTER 2017-04-30 12:04 | Day surgery (SDC) | payer MEDICAID ==
[2017-04-30] MEDS ORDERED: fentaNYL 100 MCG/2 ML INJ ONE (12:55)
[2017-04-30] MEDS ORDERED: MIDAZOLAM 2 MG/2 ML VIAL ONE (12:55)
[2017-04-30] MEDS ORDERED: NS 1,000 ML IV SCH (13:00)
[2017-04-30] MEDS ORDERED: TRIAMCINOLONE ACETONIDE 200 MG/5 ML MDV IM ONE (13:27)
[2017-04-30] MEDS ORDERED: IOPAMIDOL (ISOVUE-M 300) 15 ML VIAL ONE (13:27)
[2017-04-30 14:24] VITALS: TEMP 98.7
== END 2017-04-30 14:05 | disposition home or self-care (01) ==
LOC: FIMAGING 12:04
PROVIDERS: ATTEND Radiology Diagnostic Radiology
PROC: 3E0S33Z Introduction of Anti-inflammatory into Epidural Space, Percutaneous Approach (ICD-10-PCS; principal; 2017-04-30 13:35)
PROC: 3E0S3BZ Introduction of Anesthetic Agent into Epidural Space, Percutaneous Approach (ICD-10-PCS; principal; 2017-04-30 13:35)
DX: M54.16 Radiculopathy, lumbar region (principal)
CPT/HCPCS: J2250; J3010; J3301; Q9967

== ENCOUNTER 2017-05-14 03:36 | Emergency (ER) | payer MEDICAID ==
--- NOTE | 2017-05-14 04:23 | EDPHY ---
H & P Stated Complaint: dizziness, took 15 tizanidine - Personal History Current Tetanus/Diphtheria Vaccine: Yes Tetanus Vaccine Date: < 10 years - Medical/Surgical History Hx Asthma: No Hx Chronic Respiratory Disease: No Hx Diabetes: No Hx Cardiac Disease: Yes Hx Renal Disease: No Hx Cirrhosis: No Hx Alcoholism: No Hx HIV/AIDS: No Hx Splenectomy or Spleen Trauma: No Other PMH: chronic back pain, hypertension, depression, neck problems, ovarian cysts, right knee bursa sac removal, tubal ligation, tonsillectomy, osteoporosis - Social History Smoking Status: Former smoker Time Seen by Provider: 05/14/17 04:04 HPI/ROS: Chief Complaint: Dizziness, overdose HPI: 61-year-old woman presented emergency department after intentionally ingesting 15 tablets of her tizanidine when she was angry with her significant other. Patient is now feeling dizzy and dry mouth. Patient denies feeling actively suicidal at this time. She did not intend to harm herself but merely acted out in anger. Denies any other ingestions. No fevers or chills. No nausea or vomiting. No chest pain or shortness of breath. ROS: 10 point Review of Systems is negative except as noted in the HPI. PMH: Degenerative disc disease, sciatica Social History: Denies smoking, denies alcohol Family History: non-contributory Physical Exam: Gen: Awake, Alert, No Distress HEENT: Nose: no rhinorrhea Eyes: PERRLA, EOMI Mouth: Moist mucosa Neck: Supple, no JVD Chest: nontender, lungs clear to auscultation Heart: S1, S2 normal, no murmur Abd: Soft, non-tender, no guarding Back: no CVA tenderness, no midline tenderness Ext: no edema, non-tender Skin: no rash Neuro: CN II-XII intact, Sensation grossly intact, Strength 5/5 in bilateral upper and lower extremities (Nicanor Butler) Constitutional: Initial Vital Signs Temperature (C) 36.4 C 05/14/17 03:45 Heart Rate 43 L 05/14/17 03:45 Respiratory Rate 16 05/14/17 03:45 Blood Pressure 134/58 H 05/14/17 03:45 O2 Sat (%) 96 05/14/17 03:45 O2 Delivery Mode Room Air Allergies/Adverse Reactions: No Known Allergies Allergy (Verified 05/14/17 03:48) Home Medications: Medication Instructions Recorded ARIPiprazole [Abilify 10 mg (*)] 10 mg PO DAILY 09/27/16 Amitriptyline HCl [Elavil] 25 mg PO HS 09/27/16 DULoxetine [Cymbalta 30 MG (*)] 30 mg PO DAILY 09/27/16 Fluticasone Nasal [Flonase Nasal 1 sprays NASAL DAILY 09/27/16 [place]] Hydrochlorothiazide [HCTZ (*)] 25 mg PO DAILY 09/27/16 Ibuprofen [Motrin (*)] 800 mg PO Q6 PRN 09/27/16 Lidocaine 5% [Lidoderm 5% Patch 1 ea TD DAILY 09/27/16 (*)] Linaclotide [Linzess] 290 mcg PO DAILY 09/27/16 Morphine Sulfate [Ms Contin] 15 mg PO Q6H 09/27/16 Olopatadine HCl [Pataday] 1 drop EACHEYE HS PRN 09/27/16 Ondansetron Odt [Zofran Odt 4 mg 4 mg PO Q4 PRN 09/27/16 (*)] Tizanidine HCl 4 mg PO QID PRN 09/27/16 oxyCODONE IR [Oxycodone Ir (*)] 20 mg PO QID 09/27/16 Polyethylene Glycol 3350 [Miralax 17 gm PO DAILY PRN #0 pkt 10/01/16 17 gm (*)] guaiFENesin [Mucinex 600 MG (*)] 1,200 mg PO BID #0 tab.er 10/01/16 Lipitor 10 mg PO DAILY 12/05/16 Albuterol PRN 04/28/17 Abilify 05/14/17 Acyclovir 05/14/17 Fluticasone Nasal 05/14/17 Ms Contin 05/14/17 Medical Decision Making ED Course/Re-evaluation: 61-year-old status post intentional overdose but not suicidal. Patient does have alcohol on board. She is pending mental health evaluation. I have signed out to Dr. Selby pending mental health evaluation. (Nicanor Butler) Other Provider: Patient signed out to me at 0700. At 0845, patient has been evaluated by mental health who feel she is safe for discharge home and she is not actively suicidal. The patient has now been observed for at least 6 hours from ingestion and is hemodynamically stable and alert, so I think she is safe for discharge from a medical standpoint. (Ankush Selby) - Data Points Laboratory Results: Laboratory Results 05/14/17 04:23 05/14/17 04:23 05/14/17 05/14/17 05/14/17 05:05 04:23 04:23 WBC 7.88 10^3/uL 10^3/uL (3.80-9.50) RBC 4.86 10^6/uL 10^6/uL (4.18-5.33) Hgb 13.9 g/dL g/dL (12.6-16.3) Hct 40.4 % % (38.0-47.0) MCV 83.1 fL fL (81.5-99.8) MCH 28.6 pg pg (27.9-34.1) MCHC 34.4 g/dL g/dL (32.4-36.7) RDW 13.6 % % (11.5-15.2) Plt Count 365 10^3/uL 10^3/uL (150-400) MPV 8.4 fL L fL (8.7-11.7) Neut % (Auto) 50.6 % % (39.3-74.2) Lymph % (Auto) 39.0 % % (15.0-45.0) [place]christ % (Auto) 8.0 % % (4.5-13.0) Eos % (Auto) 1.5 % % (0.6-7.6) Baso % (Auto) 0.4 % % (0.3-1.7) Nucleat RBC Rel Count 0.0 % % (0.0-0.2) Absolute Neuts (auto) 3.99 10^3/uL 10^3/uL (1.70-6.50) Absolute Lymphs (auto) 3.07 10^3/uL H 10^3/uL (1.00-3.00) Absolute Monos (auto) 0.63 10^3/uL 10^3/uL (0.30-0.80) Absolute Eos (auto) 0.12 10^3/uL 10^3/uL (0.03-0.40) Absolute Basos (auto) 0.03 10^3/uL 10^3/uL (0.02-0.10) Absolute Nucleated RBC 0.00 10^3/uL 10^3/uL (0-0.01) Immature Gran % 0.5 % % (0.0-1.1) Immature Gran # 0.04 10^3/uL 10^3/uL (0.00-0.10) Sodium 141 mEq/L mEq/L (134-144) Potassium 3.2 mEq/L L mEq/L (3.5-5.2) Chloride 100 mEq/L mEq/L (97-110) Carbon Dioxide 27 mEq/l mEq/l (22-31) Anion Gap 14 mEq/L mEq/L (8-16) BUN 17 mg/dL mg/dL (7-23) Creatinine 0.8 mg/dL mg/dL (0.6-1.0) Estimated GFR > 60 Glucose 144 mg/dL H mg/dL (70-100) Calcium 9.3 mg/dL mg/dL (8.5-10.4) Salicylates < 1.0 mg/dL L mg/dL (2.0-20.0) Urine Opiates Screen NON-NEGATIVE H (NEGATIVE) Acetaminophen < 10 mcg/mL L mcg/mL (10-30) Urine Barbiturates NEGATIVE (NEGATIVE) Ur Phencyclidine Scrn NEGATIVE (NEGATIVE) Ur Amphetamine Screen NEGATIVE (NEGATIVE) U Benzodiazepines Scrn NEGATIVE (NEGATIVE) Urine Cocaine Screen NEGATIVE (NEGATIVE) U Marijuana (THC) Screen NEGATIVE (NEGATIVE) Ethyl Alcohol 37 mg/dL H mg/dL (0-10) Departure - Departure Disposition: Home, Routine, Self-Care Clinical Impression: Intentional overdose of drug in tablet form, Alcohol intoxication Condition: Good Instructions: Additional Information Additional Instructions: Follow-up with your mental health provider as directed. Return to the ED for thoughts of self-harm, racing thoughts or other concerns. Referrals: STEPRO,UNKNOWN [Other] - As per Instructions
[2017-05-14 04:27] LABS: % IMMATURE GRANULYOCYTES 0.5 % (0.0-1.1); ABSOLUTE IMMATURE GRANULOCYTES 0.04 10^3/uL (0.00-0.10); ADD DIFF? NO; ADD MORPH? NO; ADD SCAN? NO; ATYPICAL LYMPHOCYTE FLAG 0 (0-99); FRAGMENT RBC FLAG 0 (0-99); HEMATOCRIT 40.4 % (38.0-47.0); HEMOGLOBIN 13.9 g/dL (12.6-16.3); LEFT SHIFT FLG 0 (0-99); LIPEMIA HEMOLYSIS FLAG 90 (0-99); MEAN CELL HEMOGLOBIN 28.6 pg (27.9-34.1); MEAN CELL HEMOGLOBIN CONCENTR. 34.4 g/dL (32.4-36.7); MEAN CELL VOLUME 83.1 fL (81.5-99.8); MEAN PLATELET VOLUME 8.4 fL (8.7-11.7); PLATELET CLUMPS FLAG 10 (0-99); PLATELET COUNT 365 10^3/uL (150-400); RED BLOOD CELL COUNT 4.86 10^6/uL (4.18-5.33); RED CELL DISTRIBUTION WIDTH 13.6 % (11.5-15.2)
[2017-05-14 04:33] LABS: ANION GAP 14 mEq/L (8-16); CALCIUM 9.3 mg/dL (8.5-10.4); CARBON DIOXIDE 27 mEq/l (22-31); CHLORIDE 100 mEq/L (97-110); CREATININE 0.8 mg/dL (0.6-1.0); ETHANOL SERUM 37 mg/dL (0-10); GLOMERULAR FILTRATION RATE > 60; GLUCOSE 144 mg/dL (70-100); POTASSIUM 3.2 mEq/L (3.5-5.2); SALICYLATE < 1.0 mg/dL (2.0-20.0); SODIUM 141 mEq/L (134-144)
[2017-05-14 09:00] VITALS: BP 105/56; PULSE 58; RESP 18; TEMP 98.2; O2SAT 93
== END 2017-05-14 09:01 | disposition home or self-care (01) ==
LOC: EDUNIT#
DX: T42.8X2A Poisoning by antiparkinsonism drugs and other central muscle-tone depressants, intentional self-harm, initial encounter (principal); I10 Essential (primary) hypertension; Z87.891 Personal history of nicotine dependence; F10.129 Alcohol abuse with intoxication, unspecified
CPT/HCPCS: 80305; G0480

== ENCOUNTER → 2017-07-29 | Outpatient (CLI) | payer OTHER | LOC: FIMAGING 09:30 | PROVIDERS: ATTEND Obstetrics & Gynecology Gynecology | DX: R10.2 Pelvic and perineal pain (principal) ==

== ENCOUNTER 2017-09-21 10:54 | Emergency (ER) | payer OTHER, MEDICAID ==
--- NOTE | 2017-09-21 11:17 | CPEKG ---
Heart Rate: 73 RR Interval: 822 P-R Interval: 148 QRSD Interval: 90 QT Interval: 368 QTC Interval: 406 P Stambaugh: -3 QRS Stambaugh: 16 T Wave Stambaugh: 42 EKG Severity - OTHERWISE NORMAL ECG - EKG Impression: SINUS RHYTHM EKG Impression: LOW VOLTAGE IN FRONTAL LEADS Electronically Signed By: Jamel Escobar 21-Sep-2017 12:00:51
[2017-09-21] MEDS ORDERED: IPRATROPIUM/ALBUTEROL 3 ML DEYVIAL ONE (11:56)
[2017-09-21] MEDS ORDERED: methylPREDNISolone SOD SUCC 125 MG/2 ML VIAL IVP ONE (11:57)
[2017-09-21] MEDS ORDERED: IPRATROPIUM/ALBUTEROL 3 ML DEYVIAL IH ONE (11:57)
--- NOTE | 2017-09-21 11:59 | EDPHY ---
H & P Stated Complaint: copd/usually uses 2.5 l 02 didn't bring with her/hypoxia Time Seen by Provider: 09/21/17 11:47 HPI/ROS: CHIEF COMPLAINT: Shortness of breath HISTORY OF PRESENT ILLNESS: The patient is a 61-year-old female with a history of COPD who wears 2.5 L of oxygen at baseline who states that she has had a cold for the last week. She states that she has had turn her oxygen up today. She has not been febrile. No cough. No chest pain. Her was also seen in the ER today with severe COPD exacerbation requiring BiPAP. REVIEW OF SYSTEMS: Constitutional: denies: chills, fever, recent illness, recent injury EENTM: denies: blurred vision, double vision, nose congestion Respiratory: See HPI Cardiac: denies: chest pain, irregular heart rate, lightheadedness, palpitations Gastrointestinal/Abdominal: denies: abdominal pain, diarrhea, nausea, vomiting, blood streaked stools Genitourinary: denies: dysuria, frequency, hematuria, pain Musculoskeletal: denies: joint pain, muscle pain Skin: denies: lesions, rash, jaundice, bruising Neurological: denies: headache, numbness, paresthesia, tingling, dizziness, weakness Hematologic/Lymphatic: denies: blood clots, easy bleeding, easy bruising Immunologic/allergic: denies: HIV/AIDS, transplant EXAM: GENERAL: Well-appearing, well-nourished and in no acute distress. HEAD: Atraumatic, normocephalic. EYES: Pupils equal round and reactive to light, extraocular movements intact, sclera anicteric, conjunctiva are normal. ENT: TMs normal, nares patent, oropharynx clear without exudates. Moist mucous membranes. NECK: Normal range of motion, supple without lymphadenopathy or JVD. LUNGS: Bilateral wheezing and mild rhonchi HEART: Regular rate and rhythm without murmurs, rubs or gallops. ABDOMEN: Soft, nontender, normoactive bowel sounds. No guarding, no rebound. No masses appreciated. BACK: No CVA tenderness, no spinal tenderness, step-offs or deformities EXTREMITIES: Normal range of motion, no pitting or edema. No clubbing or cyanosis. NEUROLOGICAL: Cranial nerves II through XII grossly intact. Normal speech, normal gait. 5/5 strength, normal movement in all extremities, normal sensation PSYCH: Normal mood, normal affect. SKIN: Warm, dry, normal turgor, no visible rashes or lesions. Source: Patient Exam Limitations: No limitations - Personal History Current Tetanus/Diphtheria Vaccine: Yes Tetanus Vaccine Date: < 10 years - Medical/Surgical History Hx Asthma: No Hx Chronic Respiratory Disease: Yes Hx Diabetes: No Hx Cardiac Disease: Yes Hx Renal Disease: No Hx Cirrhosis: No Hx Alcoholism: No Hx HIV/AIDS: No Hx Splenectomy or Spleen Trauma: No Other PMH: chronic back pain, hypertension, depression, neck problems, ovarian cysts, right knee bursa sac removal, tubal ligation, tonsillectomy, osteoporosis - Family History Significant Family History: No pertinent family hx - Social History Smoking Status: Former smoker Alcohol Use: Sober Drug Use: None Constitutional: Initial Vital Signs Temperature (C) 37.5 C 09/21/17 10:58 Heart Rate 78 09/21/17 10:58 Respiratory Rate 18 09/21/17 10:58 Blood Pressure 119/52 L 09/21/17 10:58 O2 Sat (%) 85 L 09/21/17 10:58 O2 Delivery Mode Room Air O2 (L/minute) 2.5 Allergies/Adverse Reactions: No Known Allergies Allergy (Verified 09/21/17 10:55) Home Medications: Medication Instructions Recorded ARIPiprazole [Abilify 10 mg (*)] 10 mg PO DAILY 09/27/16 Amitriptyline HCl [Elavil] 25 mg PO HS 09/27/16 DULoxetine [Cymbalta 30 MG (*)] 30 mg PO DAILY 09/27/16 Fluticasone Nasal [Flonase Nasal 1 sprays NASAL DAILY 09/27/16 [place]] Hydrochlorothiazide [HCTZ (*)] 25 mg PO DAILY 09/27/16 Ibuprofen [Motrin (*)] 800 mg PO Q6 PRN 09/27/16 Lidocaine 5% [Lidoderm 5% Patch] 1 ea TD DAILY 09/27/16 Linaclotide [Linzess] 290 mcg PO DAILY 09/27/16 Morphine Sulfate [Ms Contin] 15 mg PO Q6H 09/27/16 Olopatadine HCl [Pataday] 1 drop EACHEYE HS PRN 09/27/16 Ondansetron Odt [Zofran Odt 4 mg 4 mg PO Q4 PRN 09/27/16 (*)] Tizanidine HCl 4 mg PO QID PRN 09/27/16 oxyCODONE IR [Oxycodone Ir (*)] 20 mg PO QID 09/27/16 Polyethylene Glycol 3350 [Miralax 17 gm PO DAILY PRN #0 pkt 10/01/16 17 gm (*)] guaiFENesin [Mucinex 600 MG (*)] 1,200 mg PO BID #0 tab.er 10/01/16 Lipitor 10 mg PO DAILY 12/05/16 Albuterol PRN 04/28/17 Abilify 05/14/17 Acyclovir 05/14/17 Fluticasone Nasal 05/14/17 Ms Contin 05/14/17 Advair 100/50 (*) 09/21/17 Azithromycin 250 mg PO DAILY #4 tablet 09/21/17 Medical Decision Making - Diagnostics EKG Interpretation: An EKG obtained and was read and documented in trace view. Please see trace view for full reading and report. Sinus rhythm, no acute ischemic changes Imaging Results: Imaging Impressions Chest X-Ray 09/21/17 11:18 Impression: 1. Peribronchial cuffing in the perihilar region bilaterally with prominence extending to the right lower lobe. Consider bronchitis, viral process, or reactive airways disease with possible developing bronchiolitis or early pneumonia at the right base. However, there is decreased inspiration which can also accentuate bibasilar interstitial markings. Imaging: Discussed imaging studies w/ line cleaner Radiologist ED Course/Re-evaluation: 1:05 p.m. The patient is feeling much better after breathing treatment. Her x- rays reassuring. She is saturating mid 90s on her baseline 2.5 L. We discussed options. She still has rhonchi on exam. I will start her on azithromycin and have her continue taking albuterol and steroids at home. She is happy with this plan and declines further workup or testing at this time. Differential Diagnosis: Partial list of the Differential diagnosis considered include but were not limited to; COPD exacerbation, bronchitis, pneumonia and although unlikely based on the history and physical exam, I also considered PE, acute coronary disease, pneumothorax. I discussed these differential diagnoses and the plan with the patient as well as the usual and expected course. The patient understands that the diagnosis is provisional and that in medicine we are not always correct and that further workup is often warranted. Usual and customary warnings were given. All of the patient's questions were answered. The patient was instructed to return to the emergency department should the symptoms at all worsen or return, otherwise to followup with the physician as we discussed. - Data Points Medications Given: Discontinued Medications Albuterol/Ipratropium (Duoneb) 3 ml IH EDNOW ONE Stop: 09/21/17 11:58 Last Admin: 09/21/17 11:58 Dose: 3 ml Azithromycin (Zithromax) 500 mg PO EDNOW ONE PRN Reason: Protocol Stop: 09/21/17 13:05 Last Admin: 09/21/17 13:08 Dose: 500 mg Methylprednisolone Sodium Succinate (Solu-Medrol) 125 mg IVP EDNOW ONE Stop: 09/21/17 11:58 Last Admin: 09/21/17 12:38 Dose: 125 mg Departure - Departure Disposition: Home, Routine, Self-Care Clinical Impression: Chronic obstructive pulmonary disease with acute exacerbation Acute bronchitis Qualifiers: Bronchitis organism: unspecified organism Qualified Code(s): J20.9 - Acute bronchitis, unspecified Condition: Fair Instructions: Acute Bronchitis (ED), COPD (Chronic Obstructive Pulmonary Disease) (ED) Referrals: BHAVANA MARCUS [Other] - 2-3 days, call for appt. Prescriptions: Azithromycin 250 mg PO DAILY #4 tablet
[2017-09-21] MEDS ORDERED: AZITHROMYCIN 250 MG TAB PO ONE (13:04)
[2017-09-21 13:29] VITALS: BP 113/68; PULSE 89; RESP 16; TEMP 98.2; O2SAT 95
== END 2017-09-21 13:28 | disposition home or self-care (01) ==
DX: J44.0 Chronic obstructive pulmonary disease with (acute) lower respiratory infection (principal); I10 Essential (primary) hypertension; Z87.891 Personal history of nicotine dependence
CPT/HCPCS: 71046; 93005; 96374; 99284; J2930

== ENCOUNTER 2017-09-22 13:12 | Inpatient (IN) | payer OTHER, MEDICAID ==
[2017-09-22] MEDS ORDERED: methylPREDNISolone SOD SUCC 125 MG/2 ML VIAL IVP ONE (14:06)
[2017-09-22] MEDS ORDERED: IPRATROPIUM/ALBUTEROL 3 ML DEYVIAL IH ONE (14:06)
--- NOTE | 2017-09-22 14:10 | EDPHY ---
H & P Stated Complaint: here yesterday for same;started zpack;passed out while blowing nose Time Seen by Provider: 09/22/17 14:01 HPI/ROS: CHIEF COMPLAINT: Shortness of breath, fainted HISTORY OF PRESENT ILLNESS: The patient is a 61-year-old female with a history of COPD who I saw yesterday. Her was also here yesterday and admitted with a severe COPD exacerbation. Patient wears 2.5 L of oxygen at baseline but states that when she is up and moving around her sats are dropping down into the 80s. Yesterday she was treated with albuterol, steroids and azithromycin. She states that she forgot to take those medications today. She was visiting her in the hospital and went to the bathroom to blow her nose and while blowing her nose "passed out". No seizure-like activity. No trauma. She denies chest pain or palpitations. She did not injure herself. She did not fall. She does state that she feels worse. She has not had a fever. No nausea vomiting. REVIEW OF SYSTEMS: Constitutional: See HPI EENTM: denies: blurred vision, double vision, nose congestion Respiratory: See HPI Cardiac: denies: chest pain, irregular heart rate, palpitations Gastrointestinal/Abdominal: denies: abdominal pain, diarrhea, nausea, vomiting, blood streaked stools Genitourinary: denies: dysuria, frequency, hematuria, pain Musculoskeletal: denies: joint pain, muscle pain Skin: denies: lesions, rash, jaundice, bruising Neurological: denies: headache, numbness, paresthesia, tingling, dizziness, weakness Hematologic/Lymphatic: denies: blood clots, easy bleeding, easy bruising Immunologic/allergic: denies: HIV/AIDS, transplant EXAM: GENERAL: Well-appearing, well-nourished and in no acute distress. HEAD: Atraumatic, normocephalic. EYES: Pupils equal round and reactive to light, extraocular movements intact, sclera anicteric, conjunctiva are normal. ENT: TMs normal, nares patent, oropharynx clear without exudates. Moist mucous membranes. NECK: Normal range of motion, supple without lymphadenopathy or JVD. LUNGS: Mild wheezing bilaterally, saturating 89% on room air HEART: Regular rate and rhythm without murmurs, rubs or gallops. ABDOMEN: Soft, nontender, normoactive bowel sounds. No guarding, no rebound. No masses appreciated. BACK: No CVA tenderness, no spinal tenderness, step-offs or deformities EXTREMITIES: Normal range of motion, no pitting or edema. No clubbing or cyanosis. NEUROLOGICAL: Cranial nerves II through XII grossly intact. Normal speech, normal gait. 5/5 strength, normal movement in all extremities, normal sensation PSYCH: Normal mood, normal affect. SKIN: Warm, dry, normal turgor, no visible rashes or lesions. Source: Patient Exam Limitations: No limitations - Personal History Current Tetanus Diphtheria and Acellular Pertussis (TDAP): Yes Tetanus Vaccine Date: < 10 years - Medical/Surgical History Hx Asthma: No Hx Chronic Respiratory Disease: Yes Hx Diabetes: No Hx Cardiac Disease: Yes Hx Renal Disease: No Hx Cirrhosis: No Hx Alcoholism: No Hx HIV/AIDS: No Hx Splenectomy or Spleen Trauma: No Other PMH: chronic back pain, hypertension, depression, neck problems, ovarian cysts, right knee bursa sac removal, tubal ligation, tonsillectomy, osteoporosis - Family History Significant Family History: No pertinent family hx - Social History Smoking Status: Former smoker Alcohol Use: Sober Drug Use: None Constitutional: Initial Vital Signs Temperature (C) 36.8 C 09/22/17 13:33 Heart Rate 78 09/22/17 13:33 Respiratory Rate 18 09/22/17 13:33 Blood Pressure 106/72 09/22/17 13:33 O2 Sat (%) 91 L 09/22/17 13:33 O2 Delivery Mode Nasal Cannula O2 (L/minute) 3 Allergies/Adverse Reactions: No Known Allergies Allergy (Verified 09/22/17 13:33) Home Medications: Medication Instructions Recorded ARIPiprazole [Abilify 10 mg (*)] 10 mg PO DAILY 09/27/16 Amitriptyline HCl [Elavil] 25 mg PO HS 09/27/16 DULoxetine [Cymbalta 30 MG (*)] 30 mg PO DAILY 09/27/16 Fluticasone Nasal [Flonase Nasal 1 sprays NASAL DAILY PRN 09/27/16 [place]] Hydrochlorothiazide [HCTZ (*)] 25 mg PO DAILY 09/27/16 Ibuprofen [Motrin (*)] 800 mg PO Q6 PRN 09/27/16 Lidocaine 5% [Lidoderm 5% Patch] 1 ea TD DAILY 09/27/16 Linaclotide [Linzess] 290 mcg PO DAILY 09/27/16 Morphine Sulfate [Ms Contin] 15 mg PO Q6H 09/27/16 Olopatadine HCl [Pataday] 1 drop EACHEYE HS PRN 09/27/16 Tizanidine HCl 4 mg PO QID PRN 09/27/16 oxyCODONE IR [Oxycodone Ir (*)] 20 mg PO QID 09/27/16 Atorvastatin Calcium [Lipitor 10 10 mg PO DAILY 12/05/16 mg (*)] Albuterol [Proventil Inhaler HFA 1 - 2 puffs IH Q4H PRN 04/28/17 (*)] Azithromycin 250 mg PO DAILY #4 tablet 09/21/17 Fluticasone/Salmeter 250/50Mcg 1 puffs IH BID 09/21/17 [Advair 250/50 (*)] Medical Decision Making - Diagnostics EKG Interpretation: An EKG obtained and was read and documented in trace view. Please see trace view for full reading and report. Sinus rhythm, no acute ischemic changes Imaging Results: Imaging Impressions Chest X-Ray 09/22/17 14:06 Impression: 1. Bronchitis/airways disease. 2. No definite focal pneumonia. Imaging: I viewed and interpreted images myself (Consistent with bronchitis) ED Course/Re-evaluation: Patient's x-ray does not show an obvious pneumonia. However she has COPD experiencing exacerbation. I will start her on azithromycin. I recommended admission the hospital because she desaturates when ambulating. She agrees with this. I have paged hospital service. 3:20 p.m. I discussed the case with Dr. Malik who will admit to the medical service. Differential Diagnosis: Partial list of the Differential diagnosis considered include but were not limited to; bronchitis, pneumonia, COPD exacerbation and although unlikely based on the history and physical exam, I also considered acute coronary disease , PE, dissection, aneurysm. - Data Points Laboratory Results: Laboratory Results 09/22/17 14:45 09/22/17 14:45 09/22/17 09/22/17 09/22/17 14:45 14:45 14:45 WBC RBC Hgb Hct MCV MCH MCHC RDW Plt Count MPV Neut % (Auto) Lymph % (Auto) [place] % (Auto) Eos % (Auto) Baso % (Auto) Nucleat RBC Rel Count Absolute Neuts (auto) Absolute Lymphs (auto) Absolute Monos (auto) Absolute Eos (auto) Absolute Basos (auto) Absolute Nucleated RBC Immature Gran % Immature Gran # PT 12.8 SEC SEC (12.0-15.0) INR 0.94 (0.83-1.16) APTT 25.1 SEC SEC (23.0-38.0) VBG Lactic Acid 0.9 mmol/L mmol/L (0.7-2.1) Sodium 142 mEq/L mEq/L (135-145) Potassium 3.1 mEq/L L mEq/L (3.5-5.2) Chloride 103 mEq/L mEq/L (97-110) Carbon Dioxide 25 mEq/l mEq/l (22-31) Anion Gap 14 mEq/L mEq/L (8-16) BUN 16 mg/dL mg/dL (7-23) Creatinine 0.6 mg/dL mg/dL (0.6-1.0) Estimated GFR > 60 Glucose 84 mg/dL mg/dL (70-100) Calcium 9.3 mg/dL mg/dL (8.5-10.4) Total Bilirubin 0.4 mg/dL mg/dL (0.1-1.4) Troponin I < 0.012 ng/mL ng/mL (0.000-0.034) 09/22/17 14:45 WBC 10.56 10^3/uL H 10^3/uL (3.80-9.50) RBC 4.24 10^6/uL 10^6/uL (4.18-5.33) Hgb 12.2 g/dL L g/dL (12.6-16.3) Hct 35.7 % L % (38.0-47.0) MCV 84.2 fL fL (81.5-99.8) MCH 28.8 pg pg (27.9-34.1) MCHC 34.2 g/dL g/dL (32.4-36.7) RDW 13.8 % % (11.5-15.2) Plt Count 243 10^3/uL 10^3/uL (150-400) MPV 9.1 fL fL (8.7-11.7) Neut % (Auto) 67.4 % % (39.3-74.2) Lymph % (Auto) 25.3 % % (15.0-45.0) [place] % (Auto) 6.8 % % (4.5-13.0) Eos % (Auto) 0.1 % L % (0.6-7.6) Baso % (Auto) 0.1 % L % (0.3-1.7) Nucleat RBC Rel Count 0.0 % % (0.0-0.2) Absolute Neuts (auto) 7.12 10^3/uL H 10^3/uL (1.70-6.50) Absolute Lymphs (auto) 2.67 10^3/uL 10^3/uL (1.00-3.00) Absolute Monos (auto) 0.72 10^3/uL 10^3/uL (0.30-0.80) Absolute Eos (auto) 0.01 10^3/uL L 10^3/uL (0.03-0.40) Absolute Basos (auto) 0.01 10^3/uL L 10^3/uL (0.02-0.10) Absolute Nucleated RBC 0.00 10^3/uL 10^3/uL (0-0.01) Immature Gran % 0.3 % % (0.0-1.1) Immature Gran # 0.03 10^3/uL 10^3/uL (0.00-0.10) PT INR APTT VBG Lactic Acid Sodium Potassium Chloride Carbon Dioxide Anion Gap BUN Creatinine Estimated GFR Glucose Calcium Total Bilirubin Troponin I Medications Given: Discontinued Medications Albuterol/Ipratropium (Duoneb) 3 ml IH EDNOW ONE Stop: 09/22/17 14:07 Last Admin: 09/22/17 14:26 Dose: 3 ml Azithromycin (Zithromax) 500 mg PO EDNOW ONE PRN Reason: Protocol Stop: 09/22/17 15:17 Last Admin: 09/22/17 15:52 Dose: 500 mg Azithromycin (Zithromax) 500 mg PO DAILY PEEWEE PRN Reason: Protocol Stop: 10/23/17 08:59 Last Admin: 09/22/17 15:51 Dose: 500 mg Methylprednisolone Sodium Succinate (Solu-Medrol) 125 mg IVP EDNOW ONE Stop: 09/22/17 14:07 Last Admin: 09/22/17 14:26 Dose: 125 mg Departure - Departure Disposition: [facility] Inpatient Acute Clinical Impression: Hypoxemia, Chronic obstructive pulmonary disease with acute exacerbation Acute bronchitis Qualifiers: Bronchitis organism: unspecified organism Qualified Code(s): J20.9 - Acute bronchitis, unspecified Condition: Fair
[2017-09-22 14:54] LABS: PLATELET COUNT 243 10^3/uL (150-400)
[2017-09-22 15:05] LABS: INR 0.94 (0.83-1.16); PROTIME(PATIENT) 12.8 SEC (12.0-15.0)
--- NOTE | 2017-09-22 15:13 | CPEKG ---
Heart Rate: 66 RR Interval: 909 P-R Interval: 152 QRSD Interval: 104 QT Interval: 420 QTC Interval: 441 P Grace: 13 QRS Grace: 0 T Wave Grace: 72 EKG Severity - BORDERLINE ECG - EKG Impression: SINUS RHYTHM EKG Impression: BORDERLINE T ABNORMALITIES, LATERAL LEADS Electronically Signed By: Jamel Escobar 22-Sep-2017 15:13:20
[2017-09-22] MEDS ORDERED: AZITHROMYCIN 250 MG TAB PO ONE (15:16)
[2017-09-22] MEDS ORDERED: POTASSIUM CL 20 MEQ/15 ML UDCUP PO ONE (15:32)
[2017-09-22] MEDS ORDERED: PROTOCOL POTASSIUM 1 DOSE MISC PRN (15:33)
[2017-09-22] MEDS ORDERED: ONDANSETRON DISINTEGRATING 4 MG TAB PO PRN (15:33)
[2017-09-22] MEDS ORDERED: ALBUTEROL 3 ML DEYVIAL IH PRN (15:33)
[2017-09-22] MEDS ORDERED: ONDANSETRON 4 MG/2 ML VIAL IVP PRN (15:33)
--- NOTE | 2017-09-22 15:41 | PDGENHP ---
History and Physical - Chief Complaint syncope, SOB - History of Present Illness The patient is a 61-year-old female with a history of COPD who per report had a syncopal episode today while visiting her in the [facility]. He is here for resp failure and human meta pneumo virus. She was here yesterday and sent home from the E.D. She did not take her steroids as prescribed from the E.D. She was visiting her in the hospital and went to the bathroom to blow her nose and while blowing her nose "passed out". She was feeling dizzy. No seizure-like activity. No trauma. She denies chest pain or palpitations. She did not injure herself. She did not fall. She has not had a fever. No nausea vomiting. Feeling a bit better now. + cough. PMHX: chronic back pain, hypertension, depression, neck problems, ovarian cysts , right knee bursa sac removal, tubal ligation, tonsillectomy, osteoporosis PSHX: PER ABOVE SocHx: Former tobacco user FmHx: non contributory Studies: (personally reviewed and interpreted) CXR: no infiltrates, + Hyperexpansion, +Bronchitis EKG: unremakable for acute findings Mild Leukocytosis K: 3.1 History Information - Allergies/Home Medication List Allergies/Adverse Reactions: No Known Allergies Allergy (Verified 09/22/17 13:33) Home Medications: ARIPiprazole [Abilify 10 mg (*)] 10 mg PO DAILY 09/27/16 [Last Taken 09/22/17] Amitriptyline HCl [Elavil] 25 mg PO HS 09/27/16 [Last Taken 09/21/17] DULoxetine [Cymbalta 30 MG (*)] 30 mg PO DAILY 09/27/16 [Last Taken 09/21/17] Fluticasone Nasal [Flonase Nasal [place]] 1 sprays NASAL DAILY PRN 09/27/16 [Last Taken 09/21/17] Hydrochlorothiazide [HCTZ (*)] 25 mg PO DAILY 09/27/16 [Last Taken 09/22/17] Ibuprofen [Motrin (*)] 800 mg PO Q6 PRN 09/27/16 [Last Taken 09/21/17] Lidocaine 5% [Lidoderm 5% Patch] 1 ea TD DAILY 09/27/16 [Last Taken 09/21/17] Linaclotide [Linzess] 290 mcg PO DAILY 09/27/16 [Last Taken 09/22/17] Morphine Sulfate [Ms Contin] 15 mg PO Q6H 09/27/16 [Last Taken 09/22/17 09:00] Olopatadine HCl [Pataday] 1 drop EACHEYE HS PRN 09/27/16 [Last Taken 09/21/17] Tizanidine HCl 4 mg PO QID PRN 09/27/16 [Last Taken 09/21/17] oxyCODONE IR [Oxycodone Ir (*)] 20 mg PO QID 09/27/16 [Last Taken 09/22/17 09:00 ] Atorvastatin Calcium [Lipitor 10 mg (*)] 10 mg PO DAILY 12/05/16 [Last Taken ] Albuterol [Proventil Inhaler HFA (*)] 1 - 2 puffs IH Q4H PRN 04/28/17 [Last Taken 09/22/17 09:00] Fluticasone/Salmeter 250/50Mcg [Advair 250/50 (*)] 1 puffs IH BID 09/21/17 [ Last Taken Unknown] I have personally reviewed and updated: medical history, social history - Social History Smoking Status: Former smoker Alcohol Use: Sober Drug Use: None Review of Systems Review of Systems: ROS: 10pt was reviewed & negative except for what was stated in HPI & below Physical Exam Physical Exam: Temp Pulse Resp BP Pulse Ox 36.8 C 92 17 106/72 94 09/22/17 13:33 09/22/17 14:50 09/22/17 14:50 09/22/17 13:33 09/22/17 14:50 Constitutional: no apparent distress, not in pain Eyes: PERRL, EOMI Ears, Nose, Mouth, Throat: moist mucous membranes, hearing normal Cardiovascular: regular rate and rhythym, No JVD, No edema Respiratory: reduced air movement, expiratory wheeze Gastrointestinal: normoactive bowel sounds, soft, non-tender abdomen, no palpable masses Skin: warm Musculoskeletal: full muscle strength Neurologic: AAOx3 Psychiatric: interacting appropriately, not anxious, not encephalopathic Lymph, Heme, Immunologic: No petechiae Lab Data & Imaging Review 09/22/17 14:45 09/22/17 14:45 WBC 10.56 10^3/uL (3.80-9.50) H 09/22/17 14:45 RBC 4.24 10^6/uL (4.18-5.33) 09/22/17 14:45 Hgb 12.2 g/dL (12.6-16.3) L 09/22/17 14:45 Hct 35.7 % (38.0-47.0) L 09/22/17 14:45 MCV 84.2 fL (81.5-99.8) 09/22/17 14:45 MCH 28.8 pg (27.9-34.1) 09/22/17 14:45 MCHC 34.2 g/dL (32.4-36.7) 09/22/17 14:45 RDW 13.8 % (11.5-15.2) 09/22/17 14:45 Plt Count 243 10^3/uL (150-400) 09/22/17 14:45 MPV 9.1 fL (8.7-11.7) 09/22/17 14:45 Neut % (Auto) 67.4 % (39.3-74.2) 09/22/17 14:45 Lymph % (Auto) 25.3 % (15.0-45.0) 09/22/17 14:45 [place] % (Auto) 6.8 % (4.5-13.0) 09/22/17 14:45 Eos % (Auto) 0.1 % (0.6-7.6) L 09/22/17 14:45 Baso % (Auto) 0.1 % (0.3-1.7) L 09/22/17 14:45 Nucleat RBC Rel Count 0.0 % (0.0-0.2) 09/22/17 14:45 Absolute Neuts (auto) 7.12 10^3/uL (1.70-6.50) H 09/22/17 14:45 Absolute Lymphs (auto) 2.67 10^3/uL (1.00-3.00) 09/22/17 14:45 Absolute Monos (auto) 0.72 10^3/uL (0.30-0.80) 09/22/17 14:45 Absolute Eos (auto) 0.01 10^3/uL (0.03-0.40) L 09/22/17 14:45 Absolute Basos (auto) 0.01 10^3/uL (0.02-0.10) L 09/22/17 14:45 Absolute Nucleated RBC 0.00 10^3/uL (0-0.01) 09/22/17 14:45 Immature Gran % 0.3 % (0.0-1.1) 09/22/17 14:45 Immature Gran # 0.03 10^3/uL (0.00-0.10) 09/22/17 14:45 PT 12.8 SEC (12.0-15.0) 09/22/17 14:45 INR 0.94 (0.83-1.16) 09/22/17 14:45 APTT 25.1 SEC (23.0-38.0) 09/22/17 14:45 VBG Lactic Acid 0.9 mmol/L (0.7-2.1) 09/22/17 14:45 Sodium 142 mEq/L (135-145) 09/22/17 14:45 Potassium 3.1 mEq/L (3.5-5.2) L 09/22/17 14:45 Chloride 103 mEq/L (97-110) 09/22/17 14:45 Carbon Dioxide 25 mEq/l (22-31) 09/22/17 14:45 Anion Gap 14 mEq/L (8-16) 09/22/17 14:45 BUN 16 mg/dL (7-23) 09/22/17 14:45 Creatinine 0.6 mg/dL (0.6-1.0) 09/22/17 14:45 Estimated GFR > 60 09/22/17 14:45 Glucose 84 mg/dL (70-100) 09/22/17 14:45 Calcium 9.3 mg/dL (8.5-10.4) 09/22/17 14:45 Total Bilirubin 0.4 mg/dL (0.1-1.4) 09/22/17 14:45 Troponin I < 0.012 ng/mL (0.000-0.034) 09/22/17 14:45 Assessment & Plan Assessment: Acute on Chronic Hypoxic Respiratory Failure COPD with exacerbation Likely Metapneumovirus Syncope, likely vasovagal Hypokalemia Chronic pain Syndrome Plan: Admit inpatient Azithromycin Solumedrol Scheduled nebs Hold HCTZ Replace K PT/OT home meds as appropriate TTE/Telemetry
[2017-09-22] MEDS ORDERED: FLUTICASONE NASAL 120 SPRAYS/16 GM MDI EACHNARE PRN (16:26)
[2017-09-22] MEDS ORDERED: OLOPATADINE HCL EYE EACHEYE PRN (16:26)
[2017-09-22] MEDS: morphINE SR 15 MG TAB PO SCH ×2 (17:03→22:24)
[2017-09-22] MEDS: IPRATROPIUM/ALBUTEROL 3 ML DEYVIAL IH SCH ×2 (17:39→23:07)
[2017-09-22] MEDS: oxyCODONE IR 5 MG TAB PO SCH ×2 (17:43→21:17)
[2017-09-22] MEDS: FLUTICASONE/SALMETER 250/50MCG DISKUS IH SCH (20:58)
[2017-09-22] MEDS: AMITRIPTYLINE HCL 25 MG TAB PO SCH (21:17)
[2017-09-22] MEDS: methylPREDNISolone SOD SUCC 125 MG/2 ML VIAL IVP SCH (21:17)
[2017-09-23] MEDS: methylPREDNISolone SOD SUCC 125 MG/2 ML VIAL IVP SCH ×4 (02:53→20:08)
[2017-09-23] MEDS: morphINE SR 15 MG TAB PO SCH ×4 (03:14→22:09)
[2017-09-23 04:12] LABS: PLATELET COUNT 241 10^3/uL (150-400)
[2017-09-23] MEDS: oxyCODONE IR 5 MG TAB PO SCH ×4 (05:26→20:07)
[2017-09-23] MEDS: IPRATROPIUM/ALBUTEROL 3 ML DEYVIAL IH SCH ×4 (05:56→21:49)
[2017-09-23] MEDS: LIDOCAINE 4%/MENTHOL 1% PATCH TD SCH (08:48)
[2017-09-23] MEDS: ARIPiprazole 10 MG TAB PO SCH (08:48)
[2017-09-23] MEDS: ACETAMINOPHEN 325 MG TAB PO PRN (08:48)
[2017-09-23] MEDS: ATORVASTATIN CALCIUM 10 MG TAB PO SCH (08:49)
[2017-09-23] MEDS: DULoxetine 30 MG CAP PO SCH (08:49)
[2017-09-23] MEDS: AZITHROMYCIN 250 MG TAB PO SCH (08:49)
[2017-09-23] MEDS ORDERED: AZITHROMYCIN 250 MG TAB PO SCH (09:00)
[2017-09-23] MEDS: FLUTICASONE/SALMETER 250/50MCG DISKUS IH SCH ×2 (11:14→21:49)
--- NOTE | 2017-09-23 11:14 | ECHO ---
[email or web address] [address] Main: [phone] Fax: Transthoracic Echocardiogram Name: HAYDEE LOWERY MR#: [id number] Study Date: 09/23/2017 Study Time: 09:46 AM Date of : 1955 Age: 61 year(s) Height: 172.7 cm (68 in.) Weight: 75.75 kg (167 lb.) BSA: 1.89 m2 Gender: Female Examination: Echo Indication: Cardiac: syncope, COPD, human meta pneumo virus Image Quality: Contrast: Requested by: Cricket Malik BP: 115 mmHg/68 mmHg Heart Rate: Rhythm: Indication: Cardiac: syncope, COPD, human meta pneumo virus Procedure Staff Microelectronics Technician: Jocelyne Sanchez RDCS Reading Physician: Juanito Shafer MD Requesting Provider: Conclusions: Normal study Measurements: Chambers Valvular Assessment AV/MV Valvular Assessment TV/PV Normal Normal Normal Name Value Range Name Value Range Name Value Range Ao Soheila (MM): 3.3 cm (2.2 cm-3.7 AV meanP mmHg ( - ) cm) MV E Vmax: 0.82 m/s ( - ) IVSd (2D): 0.8 cm (0.6 cm-1.1 MV A Vmax: 0.53 m/s ( - ) cm) MV E/A: 1.55 ( - ) LVDd (2D): 5.5 cm (3.9 cm-5.3 cm) LVDs (2D): 2.3 cm (2.1 cm-4 cm) LVPWd (2D): 0.8 cm ( - ) LVEF (MOD4): 75 % (>=55 %) EF Range: 70-75 % Continued Measurements: Chambers Valvular Assessment AV/MV Name Value Name Value LADs: 3.8 cm MV E/E' Septal: 9.20 LADs Lon.1 cm LA Area: 17.7 cm2 Additional Vessels Patient: HAYDEE LOWERY Study Date: 09/23/2017 Page 1 of 2 09:46 AM Name Value Ao Ascendin.0 cm Findings: Left Ventricle: Normal size left ventricle. No LV hypertrophy. Global hypercontractility of the left ventricle. The ejection fraction is estimated to be 70-75 %. No regional wall motion abnormality. Right Ventricle: Normal size right ventricle. Left Atrium: The left atrium is normal in size. Right Atrium: The right atrium is normal in size. Mitral Valve: The mitral valve is normal in appearance and function. Mild mitral valve regurgitation is present. Aortic Valve: The aortic valve is normal in appearance and function. Tricuspid Valve: The tricuspid valve is normal in appearance and function. Trivial tricuspid valve regurgitation. Pulmonic Valve: The pulmonic valve is normal in appearance and function. Aorta: Borderline ascending aorta dilatation.. The aorta is normal. Pericardium: No pericardial effusion. There is pericardial fat. Exam Comments: Incidental finding - liver cyst.. (No Signature Object) Patient: HAYDEE LOWERY Study Date: 09/23/2017 Page 2 of 2 09:46 AM [id number]
--- NOTE | 2017-09-23 13:09 | PDMN ---
Medical Necessity Medical necessity: est los>2mn for acute on chronic resp failure, COPD exacerbation, likely metapneumovirus, syncope, likely vasovagal, and hypokalemia ; admit for abx, IV steroids, scheduled nebs, tele, PT/OT, replace K+; also w/ comorbid chronic pain, htn, drpession; per order and H&P
--- NOTE | 2017-09-23 14:32 | ASMTCASEMG ---
Living Arrangements What is your living Answers: Alone arrangement? Who do you live with? Type Of Residence What kind of residence do Answers: Apartment you live in? Discharge Plan Comments Coordination Status Comments Notes: Pts case discussed in morning rounds. Pt is a 61 y/o female admitted for a COPD exacerbation and syncope. Pt will most likely d/c independent when medically stable. No therapies ordered at this time. CM available for changes. Plan: Independent Date Signed: 09/23/2017 02:31 PM Electronically Signed By:ARIANA Rodarte
--- NOTE | 2017-09-23 15:16 | HOSPPROG ---
Hospitalist Progress Note Assessment/Plan: 61-year-old female admitted with acute respiratory distress and felt to have acute viral pneumonitis. She has significant inspiratory and expiratory wheezing and bronchospasm. Patient is felt to have metapneumo virus and is currently in isolation. Patient is new to me today -acute respiratory failure and hypoxemia secondary to acute viral pneumonitis. -acute exacerbation COPD with significant bronchospasm. -hypertension currently in good control. -chronic pain syndrome. Patient is on her usual home narcotic medication and will continue this during her hospitalization without increasing. Time: 40 min Subjective: Reports she feels slightly improved but continues to feel short of breath and have intermittent coughing which is nonproductive. There is no chest pain nausea or vomiting. Objective: Vital Signs Temp Pulse Resp BP Pulse Ox 36.5 C 97 18 123/66 H 93 09/23/17 12:00 09/23/17 12:00 09/23/17 12:00 09/23/17 12:00 09/23/17 12:00 Laboratory Results 09/23/17 03:49 09/23/17 03:49 09/22/17 09/23/17 09/24/17 05:59 05:59 05:59 Intake Total 750 Balance 750 PT 12.8 SEC (12.0-15.0) 09/22/17 14:45 INR 0.94 (0.83-1.16) 09/22/17 14:45 - Time Spent With Patient Time Spent with Patient: greater than 35 minutes Time Spent with Patient: Greater than 35 minutes spent on this patients care, greater than 50% of time spent counseling, educating, and coordinating care regarding the above mentioned plan. - Pending Discharge Pending Discharge Within 24 Hours: No Pending Discharge Within 48 Hours: No - Physical Exam Constitutional: no apparent distress, not in pain, other (Acutely ill-appearing and appears tired) Eyes: anicteric sclera Ears, Nose, Mouth, Throat: moist mucous membranes, hearing normal Cardiovascular: regular rate and rhythym, no murmur, rub, or gallop Respiratory: reduced air movement, expiratory wheeze, inspiratory crackles, bronchial breath sounds, rhonchi Gastrointestinal: normoactive bowel sounds, soft, non-tender abdomen, no palpable masses Genitourinary: no bladder fullness Skin: warm Musculoskeletal: full muscle strength Neurologic: AAOx3, CN II-XII Intact Psychiatric: interacting appropriately ICD10 Worksheet Patient Problems: Problems Problem Status Onset Chest pain Acute Acute bronchitis Acute Hypoxemia Acute Chronic obstructive pulmonary disease with acute exacerbation Acute
[2017-09-23] MEDS: AMITRIPTYLINE HCL 25 MG TAB PO SCH (20:08)
[2017-09-23] MEDS ORDERED: POTASSIUM CL 10 MEQ TAB PO ONE (21:03)
[2017-09-24] MEDS: morphINE SR 15 MG TAB PO SCH ×4 (03:43→22:40)
[2017-09-24] MEDS: methylPREDNISolone SOD SUCC 125 MG/2 ML VIAL IVP SCH ×3 (03:44→15:29)
[2017-09-24] MEDS: IPRATROPIUM/ALBUTEROL 3 ML DEYVIAL IH SCH ×4 (05:42→21:08)
[2017-09-24] MEDS: oxyCODONE IR 5 MG TAB PO SCH ×4 (05:48→20:55)
[2017-09-24] MEDS: DULoxetine 30 MG CAP PO SCH (09:21)
[2017-09-24] MEDS: AZITHROMYCIN 250 MG TAB PO SCH (09:21)
[2017-09-24] MEDS: ATORVASTATIN CALCIUM 10 MG TAB PO SCH (09:21)
[2017-09-24] MEDS: FAMOTIDINE 20 MG TAB PO SCH ×2 (09:21→20:54)
[2017-09-24] MEDS: FLUTICASONE/SALMETER 250/50MCG DISKUS IH SCH ×2 (09:22→20:47)
[2017-09-24] MEDS: LIDOCAINE 4%/MENTHOL 1% PATCH TD SCH (09:22)
[2017-09-24] MEDS: guaiFENesin 600 MG TAB.ER PO SCH ×2 (09:22→20:55)
[2017-09-24] MEDS: ARIPiprazole 10 MG TAB PO SCH (10:48)
[2017-09-24] MEDS: ACETAMINOPHEN 325 MG TAB PO PRN (11:38)
--- NOTE | 2017-09-24 13:18 | HOSPPROG ---
Hospitalist Progress Note Assessment/Plan: 61-year-old female admitted with acute respiratory distress and felt to have acute viral pneumonitis. She has significant inspiratory and expiratory wheezing and bronchospasm. Patient is felt to have metapneumo virus and is currently in isolation. today patient c/o chest pain anterior chest without radiation, rate 5/10, without nausea. No clear h/o CAD, known COPD and prior tobacco, and possible reflux yet not chronic -acute respiratory failure and hypoxemia secondary to acute viral pneumonitis. Wheezing rhonchi of persist and she will continue to need steroids bronchodilators. Will add Mucinex as she does have a productive cough. -acute exacerbation COPD with significant bronchospasm. Decrease prednisone to 60 mg twice daily. -hypertension currently in good control. -chronic pain syndrome. Patient is on her usual home narcotic medication and will continue this during her hospitalization without increasing. Time: 40 min all questions were answered. Patient was seen and examined twice. Subjective: Reports she is having anterior chest pain rated 5/10 without radiation into the shoulder back neck or arms. No prior history of CAD and not associated with diaphoresis nausea or vomiting. This is possibly reflux although there is no regular history of this. Objective: Vital Signs Temp Pulse Resp BP Pulse Ox 36.6 C 86 18 120/69 94 09/24/17 11:52 09/24/17 11:52 09/24/17 11:52 09/24/17 11:52 09/24/17 11:52 Laboratory Results 09/23/17 03:49 09/24/17 04:56 09/23/17 09/24/17 09/25/17 05:59 05:59 05:59 Intake Total 750 Balance 750 PT 12.8 SEC (12.0-15.0) 09/22/17 14:45 INR 0.94 (0.83-1.16) 09/22/17 14:45 - Time Spent With Patient Time Spent with Patient: greater than 35 minutes Time Spent with Patient: Greater than 35 minutes spent on this patients care, greater than 50% of time spent counseling, educating, and coordinating care regarding the above mentioned plan. - Pending Discharge Pending Discharge Within 24 Hours: No Pending Discharge Within 48 Hours: No - Physical Exam Constitutional: other (Continues to appear acutely ill with respiratory distress of a mild degree.) Eyes: PERRL, anicteric sclera Ears, Nose, Mouth, Throat: moist mucous membranes, hearing normal Cardiovascular: regular rate and rhythym, no murmur, rub, or gallop Respiratory: reduced air movement, expiratory wheeze, inspiratory crackles, bronchial breath sounds, rhonchi, other (No chest wall tenderness to palpation) Gastrointestinal: normoactive bowel sounds, soft, non-tender abdomen, other ( Epigastrium is just slightly tender.) Genitourinary: no bladder fullness Skin: warm Musculoskeletal: full muscle strength Neurologic: AAOx3, CN II-XII Intact Psychiatric: interacting appropriately ICD10 Worksheet Patient Problems: Problems Problem Status Onset Chest pain Acute Acute bronchitis Acute Hypoxemia Acute Chronic obstructive pulmonary disease with acute exacerbation Acute
--- NOTE | 2017-09-24 13:21 | CPEKG ---
Heart Rate: 66 RR Interval: 909 P-R Interval: 132 QRSD Interval: 96 QT Interval: 412 QTC Interval: 432 P [place]: 9 QRS [place]: 15 T Wave [place]: 66 EKG Severity - BORDERLINE ECG - EKG Impression: SINUS RHYTHM EKG Impression: LOW VOLTAGE IN FRONTAL LEADS EKG Impression: BORDERLINE T ABNORMALITIES, ANT-LAT LEADS Electronically Signed By: Valente Mcdaniel 29-Sep-2017 10:42:27
[2017-09-24] MEDS: AMITRIPTYLINE HCL 25 MG TAB PO SCH (20:54)
[2017-09-25] MEDS: morphINE SR 15 MG TAB PO SCH ×4 (03:35→23:11)
[2017-09-25] MEDS: oxyCODONE IR 5 MG TAB PO SCH ×4 (05:14→20:17)
[2017-09-25] MEDS ORDERED: CALCIUM CARBONATE 500 MG CHEWABLE TAB PO PRN (05:22)
[2017-09-25] MEDS: IPRATROPIUM/ALBUTEROL 3 ML DEYVIAL IH SCH ×4 (06:12→20:43)
[2017-09-25] MEDS ORDERED: methylPREDNISolone SOD SUCC 125 MG/2 ML VIAL IVP SCH (09:00)
[2017-09-25] MEDS: LIDOCAINE 4%/MENTHOL 1% PATCH TD SCH (09:06)
[2017-09-25] MEDS: DULoxetine 30 MG CAP PO SCH (09:11)
[2017-09-25] MEDS: guaiFENesin 600 MG TAB.ER PO SCH ×2 (09:11→20:17)
[2017-09-25] MEDS: AZITHROMYCIN 250 MG TAB PO SCH (09:11)
[2017-09-25] MEDS: ATORVASTATIN CALCIUM 10 MG TAB PO SCH (09:12)
[2017-09-25] MEDS: ARIPiprazole 10 MG TAB PO SCH (09:12)
[2017-09-25] MEDS: FAMOTIDINE 20 MG TAB PO SCH ×2 (09:12→20:17)
[2017-09-25] MEDS: FLUTICASONE/SALMETER 250/50MCG DISKUS IH SCH ×2 (09:23→20:43)
[2017-09-25] MEDS: ACETAMINOPHEN 325 MG TAB PO PRN ×2 (10:28→20:16)
[2017-09-25] MEDS ORDERED: POTASSIUM CL 10 MEQ TAB PO ONE (11:09)
--- NOTE | 2017-09-25 14:52 | HOSPPROG ---
Hospitalist Progress Note Assessment/Plan: 61-year-old female admitted with acute respiratory distress and felt to have acute viral pneumonitis. She has significant inspiratory and expiratory wheezing and bronchospasm. Patient is felt to have metapneumo virus and is currently in isolation. today patient c/o chest pain anterior chest without radiation, rate 5/10, without nausea. No clear h/o CAD, known COPD and prior tobacco, and possible reflux yet not chronic -acute respiratory failure and hypoxemia secondary to acute viral pneumonitis. Wheezing rhonchi of persist and she will continue to need steroids bronchodilators. Will add Mucinex as she does have a productive cough. -acute exacerbation COPD with significant bronchospasm. Decrease prednisone to 60 mg twice daily. -hypertension currently in good control. -chronic pain syndrome. Patient is on her usual home narcotic medication and will continue this during her hospitalization without increasing. Patient needs ambulation with O2 to increase strength. November discharge 09/26 with O2; will decrease steroids today further. Slowly improving. Time: 40 min all questions were answered. Patient was seen and examined twice. Subjective: reports she feels weak and still has SOB with exertion. Objective: Vital Signs Temp Pulse Resp BP Pulse Ox 36.8 C 66 18 133/71 H 94 09/25/17 11:07 09/25/17 11:07 09/25/17 11:07 09/25/17 11:07 09/25/17 11:07 Laboratory Results 09/23/17 03:49 09/25/17 05:10 PT 12.8 SEC (12.0-15.0) 09/22/17 14:45 INR 0.94 (0.83-1.16) 09/22/17 14:45 - Time Spent With Patient Time Spent with Patient: greater than 35 minutes Time Spent with Patient: Greater than 35 minutes spent on this patients care, greater than 50% of time spent counseling, educating, and coordinating care regarding the above mentioned plan. - Pending Discharge Pending Discharge Within 24 Hours: Yes Pending Discharge Date: 09/26/17 Pending Discharge Time: 11:00 - Physical Exam Constitutional: no apparent distress Eyes: PERRL Ears, Nose, Mouth, Throat: moist mucous membranes, hearing normal Cardiovascular: regular rate and rhythym, no murmur, rub, or gallop Respiratory: reduced air movement, expiratory wheeze, bronchial breath sounds, rhonchi Gastrointestinal: normoactive bowel sounds, soft, non-tender abdomen, no palpable masses Musculoskeletal: full muscle strength Neurologic: AAOx3, CN II-XII Intact Psychiatric: interacting appropriately ICD10 Worksheet Patient Problems: Problems Problem Status Onset Chest pain Acute Acute bronchitis Acute Hypoxemia Acute Chronic obstructive pulmonary disease with acute exacerbation Acute
[2017-09-25] MEDS ORDERED: LACTULOSE 20 GM/30 ML UDCUP PO PRN (18:16)
[2017-09-25] MEDS ORDERED: MAGNESIUM HYDROXIDE 30 ML UDCUP PO PRN (18:16)
[2017-09-25] MEDS ORDERED: BISACODYL 10 MG SUPP PR PRN (18:16)
[2017-09-25] MEDS: SENNOSIDES/DOCUSATE SODIUM TAB PO SCH (20:17)
[2017-09-25] MEDS: AMITRIPTYLINE HCL 25 MG TAB PO SCH (20:17)
[2017-09-26] MEDS: ACETAMINOPHEN 325 MG TAB PO PRN ×3 (01:58→16:38)
[2017-09-26] MEDS: morphINE SR 15 MG TAB PO SCH ×4 (04:02→23:01)
[2017-09-26] MEDS: IPRATROPIUM/ALBUTEROL 3 ML DEYVIAL IH SCH ×4 (04:58→20:52)
[2017-09-26] MEDS: oxyCODONE IR 5 MG TAB PO SCH ×4 (05:37→21:07)
--- NOTE | 2017-09-26 08:39 | HOSPPROG ---
Hospitalist Progress Note Assessment/Plan: 61-year-old female admitted with acute respiratory distress and felt to have acute viral pneumonitis. She has significant inspiratory and expiratory wheezing and bronchospasm. Patient is felt to have metapneumo virus and is currently in isolation. today patient c/o chest pain anterior chest without radiation, rate 5/10, without nausea. No clear h/o CAD, known COPD and prior tobacco, and possible reflux yet not chronic -acute respiratory failure and hypoxemia secondary to acute viral pneumonitis. Wheezing rhonchi of persist and she will continue to need steroids bronchodilators. Will add Mucinex as she does have a productive cough. Will also add Tylenol with codeine for nighttime cough and headache an assistant in nursing sleep but she has had poor sleeping. -acute exacerbation COPD with significant bronchospasm. Decrease prednisone to 60 mg twice daily. -hypertension currently in good control. -chronic pain syndrome. Patient is on her usual home narcotic medication and will continue this during her hospitalization without increasing. Patient needs ambulation with O2 to increase strength. May discharge 09/26 with O2; will decrease steroids today further. Slowly improving. Disposition: -patient can return home as she has adequate support at home and can be discharged on 09/27. -prescription for nebulizers been written and is delivered to her along with the equipment. -planned follow-up with Pulmonary would be helpful. -Zithromax course has been completed and this can be DC to at discharge. Time: 40 min all questions were answered. Patient was seen and examined twice. Subjective: Reports she is feeling much better this afternoon. She has taken a walk she has more energy although she continues to have a headache which may be secondary to bronchodilators. Objective: Vital Signs Temp Pulse Resp BP Pulse Ox 36.6 C 56 L 18 128/71 H 92 09/26/17 04:00 09/26/17 04:58 09/26/17 04:58 09/26/17 04:00 09/26/17 04:58 Laboratory Results 09/23/17 03:49 09/26/17 04:50 09/25/17 09/26/17 09/27/17 05:59 05:59 05:59 Intake Total 480 Balance 480 PT 12.8 SEC (12.0-15.0) 09/22/17 14:45 INR 0.94 (0.83-1.16) 09/22/17 14:45 - Time Spent With Patient Time Spent with Patient: greater than 35 minutes Time Spent with Patient: Greater than 35 minutes spent on this patients care, greater than 50% of time spent counseling, educating, and coordinating care regarding the above mentioned plan. - Pending Discharge Pending Discharge Within 24 Hours: Yes Pending Discharge Date: 09/27/17 Pending Discharge Time: 11:00 - Physical Exam Constitutional: no apparent distress, other (Some acute mild respiratory difficulty. Patient this morning appeared tired but feels improved this afternoon) Eyes: PERRL, anicteric sclera Ears, Nose, Mouth, Throat: moist mucous membranes, hearing normal Cardiovascular: regular rate and rhythym, no murmur, rub, or gallop, tachycardia Respiratory: reduced air movement, inspiratory crackles, bronchial breath sounds , rhonchi Gastrointestinal: normoactive bowel sounds, soft, non-tender abdomen, no palpable masses Genitourinary: no bladder fullness Skin: warm Musculoskeletal: full muscle strength Neurologic: AAOx3, CN II-XII Intact Psychiatric: interacting appropriately ICD10 Worksheet Patient Problems: Problems Problem Status Onset Acute bronchitis Acute Chronic obstructive pulmonary disease with acute exacerbation Acute Hypoxemia Acute Chest pain Acute
[2017-09-26] MEDS: predniSONE 20 MG TAB PO SCH (08:53)
[2017-09-26] MEDS: ATORVASTATIN CALCIUM 10 MG TAB PO SCH (08:53)
[2017-09-26] MEDS: guaiFENesin 600 MG TAB.ER PO SCH ×2 (08:54→21:07)
[2017-09-26] MEDS: SENNOSIDES/DOCUSATE SODIUM TAB PO SCH ×2 (08:54→21:07)
[2017-09-26] MEDS: FAMOTIDINE 20 MG TAB PO SCH ×2 (08:54→21:07)
[2017-09-26] MEDS: AZITHROMYCIN 250 MG TAB PO SCH (08:54)
[2017-09-26] MEDS: DULoxetine 30 MG CAP PO SCH (08:54)
[2017-09-26] MEDS: ARIPiprazole 10 MG TAB PO SCH (08:54)
[2017-09-26] MEDS: LIDOCAINE 4%/MENTHOL 1% PATCH TD SCH (08:56)
[2017-09-26] MEDS: POLYETHYLENE GLYCOL 3350 17 GM PKT PO PRN (08:57)
[2017-09-26] MEDS ORDERED: predniSONE 20 MG TAB PO SCH (09:00)
[2017-09-26] MEDS: FLUTICASONE/SALMETER 250/50MCG DISKUS IH SCH ×2 (10:16→20:54)
[2017-09-26] MEDS: ACETAMINOPHEN/CODEINE 300/30MG TAB PO SCH ×3 (11:41→23:01)
--- NOTE | 2017-09-26 16:40 | ASMTCMCOM ---
CM Note CM Note Notes: Reviewed chart regarding discharge plan of care, pt's progress. Per MD notes, pt likely has pneumonitis and metapneumo virus. Pt will likely be ready for discharge on Wednesday09/27/17. PT notes indicate pt does not have any acute needs and can discharge home independently with family support when stable. CM available for any other potential issues or concerns. Current discharge plan: Home independently w/ family support Date Signed: 09/26/2017 04:38 PM Electronically Signed By:Kelsie Rodriguez RN
[2017-09-26] MEDS: AMITRIPTYLINE HCL 25 MG TAB PO SCH (21:08)
[2017-09-27] MEDS: morphINE SR 15 MG TAB PO SCH ×4 (04:40→23:45)
[2017-09-27] MEDS: oxyCODONE IR 5 MG TAB PO SCH ×4 (05:59→21:29)
[2017-09-27] MEDS: IPRATROPIUM/ALBUTEROL 3 ML DEYVIAL IH SCH ×4 (06:11→20:57)
[2017-09-27] MEDS: ACETAMINOPHEN/CODEINE 300/30MG TAB PO SCH ×4 (06:24→21:28)
[2017-09-27] MEDS: FLUTICASONE/SALMETER 250/50MCG DISKUS IH SCH ×2 (09:30→20:57)
[2017-09-27] MEDS: SENNOSIDES/DOCUSATE SODIUM TAB PO SCH ×2 (09:31→21:28)
[2017-09-27] MEDS: FAMOTIDINE 20 MG TAB PO SCH ×2 (09:31→21:31)
[2017-09-27] MEDS: predniSONE 20 MG TAB PO SCH (09:32)
[2017-09-27] MEDS: ATORVASTATIN CALCIUM 10 MG TAB PO SCH (09:32)
[2017-09-27] MEDS: DULoxetine 30 MG CAP PO SCH (09:33)
[2017-09-27] MEDS: ARIPiprazole 10 MG TAB PO SCH (09:33)
[2017-09-27] MEDS: guaiFENesin 600 MG TAB.ER PO SCH ×2 (09:33→21:30)
[2017-09-27] MEDS: AZITHROMYCIN 250 MG TAB PO SCH (09:33)
[2017-09-27] MEDS: ACETAMINOPHEN 325 MG TAB PO PRN (09:37)
[2017-09-27] MEDS: LIDOCAINE 4%/MENTHOL 1% PATCH TD SCH (09:37)
--- NOTE | 2017-09-27 11:00 | HOSPPROG ---
Hospitalist Progress Note Assessment/Plan: 61-year-old female admitted with acute respiratory distress and felt to have acute viral pneumonitis. She has significant inspiratory and expiratory wheezing and bronchospasm. Patient has the metapneumovirus and is currently in isolation. * acute hypoxemic respiratory failure secondary to viral pneumonitis -was treated with Zithromax and has completed this -follow up with pulmonology *upper respiratory viral infection (human Metapneumovirus) -supportive care -has significant rhonchi scattered in both lung *sinus headache -Sudafed * COPD exacerbation -on 20 mg prednisone daily * hypertension -bp stable * syncopal episode prior to admission, likely vasovagal * chronic pain on continuous opioids -cont home regimen *dvt prophylaxis: LMWH Subjective: Gisela is c/o right sided sinus headache. Objective: Vital Signs Temp Pulse Resp BP Pulse Ox 36.7 C 69 18 125/79 H 91 L 09/27/17 08:00 09/27/17 08:00 09/27/17 08:00 09/27/17 08:00 09/27/17 08:00 Laboratory Results 09/23/17 03:49 09/26/17 04:50 09/26/17 09/27/17 09/28/17 05:59 05:59 05:59 Intake Total 480 Balance 480 PT 12.8 SEC (12.0-15.0) 09/22/17 14:45 INR 0.94 (0.83-1.16) 09/22/17 14:45 - Physical Exam Constitutional: uncomfortable Eyes: PERRL Ears, Nose, Mouth, Throat: hearing normal Cardiovascular: regular rate and rhythym Respiratory: no respiratory distress, reduced air movement, rhonchi (scattered throughout both lungs) Gastrointestinal: normoactive bowel sounds Skin: warm Musculoskeletal: full muscle strength Neurologic: AAOx3 Psychiatric: interacting appropriately ICD10 Worksheet Patient Problems: Problems Problem Status Onset Acute bronchitis Acute Chronic obstructive pulmonary disease with acute exacerbation Acute Hypoxemia Acute Chest pain Acute
[2017-09-27] MEDS: PSEUDOEPHEDRINE HCL 30 MG TAB PO PRN (16:20)
[2017-09-27] MEDS: AMITRIPTYLINE HCL 25 MG TAB PO SCH (21:31)
[2017-09-28] MEDS: morphINE SR 15 MG TAB PO SCH ×4 (04:01→22:20)
[2017-09-28] MEDS: IPRATROPIUM/ALBUTEROL 3 ML DEYVIAL IH SCH ×4 (04:32→20:13)
[2017-09-28] MEDS: oxyCODONE IR 5 MG TAB PO SCH ×4 (05:37→22:20)
[2017-09-28] MEDS: ACETAMINOPHEN/CODEINE 300/30MG TAB PO SCH ×3 (05:40→18:29)
[2017-09-28] MEDS: DULoxetine 30 MG CAP PO SCH (08:48)
[2017-09-28] MEDS: ATORVASTATIN CALCIUM 10 MG TAB PO SCH (08:48)
[2017-09-28] MEDS: SENNOSIDES/DOCUSATE SODIUM TAB PO SCH ×2 (08:48→22:19)
[2017-09-28] MEDS: guaiFENesin 600 MG TAB.ER PO SCH ×2 (08:49→22:19)
[2017-09-28] MEDS: LIDOCAINE 4%/MENTHOL 1% PATCH TD SCH (08:49)
[2017-09-28] MEDS: predniSONE 20 MG TAB PO SCH (08:49)
[2017-09-28] MEDS: FAMOTIDINE 20 MG TAB PO SCH ×2 (08:49→22:19)
[2017-09-28] MEDS: ARIPiprazole 10 MG TAB PO SCH (08:49)
[2017-09-28] MEDS: ENOXAPARIN 40 MG/0.4 ML SYR SC SCH (08:50)
[2017-09-28] MEDS: PSEUDOEPHEDRINE HCL 30 MG TAB PO PRN (09:16)
[2017-09-28] MEDS: FLUTICASONE/SALMETER 250/50MCG DISKUS IH SCH ×2 (09:31→20:13)
--- NOTE | 2017-09-28 13:02 | HOSPPROG ---
Hospitalist Progress Note Assessment/Plan: 61-year-old female admitted with acute respiratory distress and felt to have acute viral pneumonitis. She has significant inspiratory and expiratory wheezing and bronchospasm. Patient has the metapneumovirus and is currently in isolation. * acute hypoxemic respiratory failure secondary to viral pneumonitis -was treated with Zithromax and has completed this -follow up with pulmonology -requiring 2 liters of O2 *upper respiratory viral infection (human Metapneumovirus) -supportive care -slowly improving *sinus headache -Sudafed helped * COPD exacerbation -on 20 mg prednisone daily * hypertension -bp stable * syncopal episode prior to admission, likely vasovagal * chronic pain on continuous opioids -cont home regimen *dvt prophylaxis: LMWH Objective: Vital Signs Temp Pulse Resp BP Pulse Ox 36.4 C 75 16 130/80 H 96 09/28/17 07:14 09/28/17 09:34 09/28/17 09:34 09/28/17 07:14 09/28/17 09:34 Laboratory Results 09/23/17 03:49 09/26/17 04:50 09/27/17 09/28/17 09/29/17 05:59 05:59 05:59 Intake Total 1750 Balance 1750 PT 12.8 SEC (12.0-15.0) 09/22/17 14:45 INR 0.94 (0.83-1.16) 09/22/17 14:45 - Physical Exam Constitutional: no apparent distress, appears nourished Eyes: PERRL Ears, Nose, Mouth, Throat: hearing normal Cardiovascular: regular rate and rhythym Respiratory: no respiratory distress, reduced air movement (bases), rhonchi ( cont to have scattered rhonchi but improved today) Gastrointestinal: normoactive bowel sounds Skin: warm Musculoskeletal: generalized weakness Neurologic: AAOx3 ICD10 Worksheet Patient Problems: Problems Problem Status Onset Acute bronchitis Acute Chronic obstructive pulmonary disease with acute exacerbation Acute Hypoxemia Acute Chest pain Acute
[2017-09-28] MEDS: CETIRIZINE 10 MG TAB PO SCH (15:23)
[2017-09-28] MEDS: AMITRIPTYLINE HCL 25 MG TAB PO SCH (22:19)
[2017-09-29] MEDS: ACETAMINOPHEN/CODEINE 300/30MG TAB PO SCH ×2 (01:45→05:02)
[2017-09-29] MEDS: oxyCODONE IR 5 MG TAB PO SCH ×2 (04:52→11:00)
[2017-09-29] MEDS: morphINE SR 15 MG TAB PO SCH ×2 (04:52→11:01)
[2017-09-29] MEDS: IPRATROPIUM/ALBUTEROL 3 ML DEYVIAL IH SCH ×2 (05:27→10:01)
[2017-09-29 07:54] VITALS: BP 121/64
[2017-09-29] MEDS: ENOXAPARIN 40 MG/0.4 ML SYR SC SCH (08:26)
[2017-09-29] MEDS: LIDOCAINE 4%/MENTHOL 1% PATCH TD SCH (08:27)
[2017-09-29] MEDS: ARIPiprazole 10 MG TAB PO SCH (08:28)
[2017-09-29] MEDS: guaiFENesin 600 MG TAB.ER PO SCH (08:28)
[2017-09-29] MEDS: ATORVASTATIN CALCIUM 10 MG TAB PO SCH (08:28)
[2017-09-29] MEDS: DULoxetine 30 MG CAP PO SCH (08:29)
[2017-09-29] MEDS: CETIRIZINE 10 MG TAB PO SCH (08:29)
[2017-09-29] MEDS: predniSONE 20 MG TAB PO SCH (08:29)
[2017-09-29] MEDS: SENNOSIDES/DOCUSATE SODIUM TAB PO SCH (08:29)
[2017-09-29] MEDS: FAMOTIDINE 20 MG TAB PO SCH (08:29)
[2017-09-29] MEDS: ACETAMINOPHEN 325 MG TAB PO PRN (08:34)
[2017-09-29] MEDS: POLYETHYLENE GLYCOL 3350 17 GM PKT PO PRN (08:35)
--- NOTE | 2017-09-29 09:05 | HOSPPROG ---
Hospitalist Progress Note Assessment/Plan: 61-year-old female admitted with acute respiratory distress and felt to have acute viral pneumonitis. She has significant inspiratory and expiratory wheezing and bronchospasm. Patient has the metapneumovirus and is currently in isolation. * acute hypoxemic respiratory failure secondary to viral pneumonitis -was treated with Zithromax and has completed this -follow up with pulmonology -doing overall well on room air *upper respiratory viral infection (human Metapneumovirus) -supportive care *sinus headache -resolved * COPD exacerbation -on 20 mg prednisone daily * hypertension -bp stable * syncopal episode prior to admission, likely vasovagal * chronic pain on continuous opioids -cont home regimen *dvt prophylaxis: LMWH *Plan: dc home Subjective: Gisela is feeling much better today, less short of breath Objective: Vital Signs Temp Pulse Resp BP Pulse Ox 36.6 C 75 18 121/64 H 92 09/29/17 07:50 09/29/17 07:50 09/29/17 07:50 09/29/17 07:50 09/29/17 07:50 Laboratory Results 09/23/17 03:49 09/26/17 04:50 09/28/17 09/29/17 09/30/17 05:59 05:59 05:59 Intake Total 1750 1000 Balance 1750 1000 PT 12.8 SEC (12.0-15.0) 09/22/17 14:45 INR 0.94 (0.83-1.16) 09/22/17 14:45 - Physical Exam Constitutional: no apparent distress, appears nourished, not in pain Eyes: PERRL Ears, Nose, Mouth, Throat: hearing normal Cardiovascular: regular rate and rhythym Respiratory: no respiratory distress, rhonchi (few scattered rhonhchii on posterior side, much improved) Skin: warm Musculoskeletal: full muscle strength Neurologic: AAOx3 Psychiatric: interacting appropriately ICD10 Worksheet Patient Problems: Problems Problem Status Onset Acute bronchitis Acute Chronic obstructive pulmonary disease with acute exacerbation Acute Hypoxemia Acute Chest pain Acute
--- NOTE | 2017-09-29 09:34 | ASMTLACE ---
LACE Length of stay for Answers: 4-6 days current admission Acuity / Level of Answers: Yes Care: Did the patient have an inpatient admission? Comorbidities - select Answers: Chronic pulmonary disease all that apply Opioid dependence / Chronic pain Other Notes: HTN, # of Emergency department Answers: 3-4 visits in the last 6 months Social determinants Answers: Mental health diagnosis (anxiety, depression, pers onality disorders, etc.) Score: 20 Date Signed: 09/29/2017 09:33 AM Electronically Signed By:Criselda Bradley RN
--- NOTE | 2017-09-29 09:36 | ASMTCMCOM ---
CM Note CM Note Notes: Pt was cleared by PT, will dc home w/support of family. CM available for any changes. DC Plan: Independent Date Signed: 09/29/2017 09:35 AM Electronically Signed By:Criselda Bradley RN
[2017-09-29] MEDS: FLUTICASONE/SALMETER 250/50MCG DISKUS IH SCH (10:01)
--- NOTE | 2017-09-29 10:07 | GDS ---
[f rep st] DISCHARGE SUMMARY DISCHARGE DIAGNOSES: 1. Acute hypoxemic respiratory failure secondary to viral pneumonitis. 2. Upper respiratory viral infection secondary to the human metapneumovirus. 3. Sinus headache. 4. Chronic obstructive pulmonary disease exacerbation. 5. Hypertension. 6. Syncopal episode prior to admission, vasovagal. 7. Chronic pain on continuous opioids. HISTORY OF PRESENT ILLNESS: Briefly, the patient is a 61-year-old female who was admitted with acute respiratory distress and felt to have an acute viral pneumonitis. Her PCR noted that she had human metapneumovirus. She was treated with supportive care. Today, she will be discharged home and further followup with a quality rep. HOSPITAL COURSE: 1. Acute hypoxemic respiratory failure secondary to viral pneumonitis. She was treated with Zithromax and has finished this. 2. Upper respiratory viral infection, human metapneumovirus. I told her this will take a period of time to get over this because she has underlying COPD, making it harder to get over this infection. 3. Sinus headache, resolved. 4. Chronic obstructive pulmonary disease exacerbation. Will continue on prednisone for several more days. 5. Hypertension. Blood pressure is stable. 6. Syncopal episode. It appears that this was vasovagal, none further. 7. Chronic pain on continuous opiates. Continue her home regimen. DISCHARGE CONDITION: Stable. Blood pressure is 121/64, heart rate is 75, respiratory rate is 18, O2 sats on 2 L are 92% to 95%. Temperature 36.6 Celsius. MEDICATIONS AT DISCHARGE: Please see the EMR. DISCHARGE INSTRUCTIONS: 1. To follow up with the quality rep. 2. To continue weaning off the prednisone. 3. If she develops fever, chills, chest pain, or shortness of breath, return to the ER. Greater than 30 minutes discharging and coordinating the patient's care. /[id number]/MODL MTDD
== END 2017-09-29 11:22 | disposition home or self-care (01) | DRG 193 ==
LOC: OBSVTOIN 15:25 → F2W 16:25 → F3E 09-23 17:15
PROVIDERS: ADMIT Family Medicine; ATTEND Family Medicine
DX: J12.9 Viral pneumonia, unspecified (principal); J96.01 Acute respiratory failure with hypoxia; J44.1 Chronic obstructive pulmonary disease with (acute) exacerbation; B97.81 Human metapneumovirus as the cause of diseases classified elsewhere; J06.9 Acute upper respiratory infection, unspecified; R51 Headache; I10 Essential (primary) hypertension; G89.29 Other chronic pain; M10.9 Gout, unspecified; Z87.891 Personal history of nicotine dependence
CPT/HCPCS: 96374; 97161-GP; G8978-GP-CI; G8979-GP-CI; G8980-GP-CI; J1650; J2930; J7512

== ENCOUNTER → 2017-11-22 | Outpatient (CLI) | payer OTHER, MEDICAID | LOC: FIMAGING 11:22 | PROVIDERS: ATTEND Family Medicine | DX: Z12.31 Encounter for screening mammogram for malignant neoplasm of breast (principal) ==

== ENCOUNTER → 2017-12-20 | Outpatient (CLI) | payer OTHER, MEDICAID | LOC: FIMAGING 09:09 | PROVIDERS: ATTEND Family Medicine | DX: Z13.820 Encounter for screening for osteoporosis (principal); M81.0 Age-related osteoporosis without current pathological fracture ==

== ENCOUNTER 2018-01-14 11:02 | Emergency (ER) | payer OTHER, MEDICAID ==
[2018-01-14 11:08] VITALS: BP 120/75
[2018-01-14] MEDS ORDERED: MAGNESIUM CITRATE 300 ML BOTTLE PO ONE (12:11)
[2018-01-14] MEDS ORDERED: GLYCERIN ADULT 1 EACH SUPP PR ONE (12:21)
--- NOTE | 2018-01-14 13:19 | EDPHY ---
H & P Time Seen by Provider: 01/14/18 11:17 HPI/ROS: CHIEF COMPLAINT: Constipation HISTORY OF PRESENT ILLNESS: 62-year-old female presents to the emergency department feeling constipated. She has a history of chronic pain in his on opiates. She typically takes Linzess in daily to prevent constipation. The patient states that she has not had a bowel movement in 4 days. She typically has 1 bowel movement every 3 days. She states that she is having a lot of rectal pain. She tried to manually disimpact herself without relief. She denies abdominal pain currently no back pain. No urinary symptoms. No fevers or chills. No reported trauma. She has tried laxatives as well as glycerin suppository without relief. REVIEW OF SYSTEMS: Constitutional: No fever, no chills. Eyes: No double or blurry vision. ENT: No sore throat. Respiratory: No cough, no shortness of breath. Cardiac: No chest pain. Gastrointestinal: Constipation, rectal pain. No abdominal pain, vomiting or diarrhea. Genitourinary: No dysuria. Musculoskeletal: No neck or back pain. Skin: No rashes. Neurological: No headache. Past Medical/Surgical History: Chronic back pain, hypertension, depression, chronic neck pain, ovarian cysts, orthopedic surgery, tubal ligation, tonsillectomy, osteoporosis Social History: and lives in [place] Smoking Status: Former smoker Physical Exam: General Appearance: Alert, moderate distress. Afebrile. Eyes: Pupils equal and round. Extraocular motions are all intact. ENT: Mouth: Mucous membranes moist. Respiratory: No wheezing, rhonchi, or rales, lungs are clear to auscultation. Cardiovascular: Regular rate and rhythm. Gastrointestinal: Abdomen is soft and nontender, no masses, no rebound or guarding, bowel sounds normal. Rectal exam: Multiple external nonthrombosed hemorrhoids noted. Rectal examination was performed with her daughter at bedside. Patient has normal sphincter tone. She is extremely tense. The patient does have stool present deep in her rectal vault. There is no blood. There is no fissures. There is no active bleeding noted. There is no blood on the gloved finger. Patient does not tolerate manual disimpaction. Neurological: Alert and oriented x 3, cranial nerves II through XII grossly intact Skin: Warm and dry, no rashes. Musculoskeletal: Nontender to palpate along the cervical, thoracic or lumbar spine. Neck is supple. Extremities: Full range of motion and no peripheral edema. Psychiatric: Patient is oriented X 3, there is no agitation. Constitutional: Initial Vital Signs Temperature (C) 36.5 C 01/14/18 11:06 Heart Rate 84 01/14/18 11:06 Respiratory Rate 18 01/14/18 11:06 Blood Pressure 120/75 01/14/18 11:06 O2 Sat (%) 93 01/14/18 11:06 O2 Delivery Mode Room Air Allergies/Adverse Reactions: No Known Allergies Allergy (Verified 01/14/18 11:07) Home Medications: Medication Instructions Recorded ARIPiprazole [Abilify 10 mg (*)] 10 mg PO DAILY 09/27/16 Amitriptyline HCl [Elavil] 25 mg PO HS 09/27/16 DULoxetine [Cymbalta 30 MG (*)] 30 mg PO DAILY 09/27/16 Fluticasone Nasal [Flonase Nasal 1 sprays NASAL DAILY PRN 09/27/16 [place]] Hydrochlorothiazide [HCTZ (*)] 25 mg PO DAILY 09/27/16 Ibuprofen [Motrin (*)] 800 mg PO Q6 PRN 09/27/16 Lidocaine 5% [Lidoderm 5% Patch] 1 ea TD DAILY 09/27/16 Linaclotide [Linzess] 290 mcg PO DAILY 09/27/16 Morphine Sulfate [Ms Contin] 15 mg PO Q6H 09/27/16 Olopatadine HCl [Pataday] 1 drop EACHEYE HS PRN 09/27/16 Tizanidine HCl 4 mg PO QID PRN 09/27/16 oxyCODONE IR [Oxycodone Ir (*)] 20 mg PO QID 09/27/16 Atorvastatin Calcium [Lipitor 10 10 mg PO DAILY 12/05/16 mg (*)] Albuterol [Proventil Inhaler HFA 1 - 2 puffs IH Q4H PRN 04/28/17 (*)] Fluticasone/Salmeter 250/50Mcg 1 puffs IH BID 09/21/17 [Advair 250/50 (*)] Famotidine [Pepcid 20 MG (*)] 20 mg PO BID #30 tab 09/26/17 Ipratropium/Albuterol [Duoneb (*)] 3 ml IH QID 30 Days #120 deyvial 09/26/17 Cetirizine [ZyrTEC 10 mg (*)] 10 mg PO DAILY tab 09/29/17 predniSONE 20 mg PO DAILY #6 tablet 09/29/17 Medical Decision Making - Diagnostics Imaging: I viewed and interpreted images myself ED Course/Re-evaluation: Two-view abdominal x-ray reveals no evidence of obstruction, moderate constipation. The patient had a Fleet's and mineral oil enema. She would initially was not unable to retain this but she had repeat mineral oil enema was able to retain this for about 15 min and then had a large bowel movement. The patient while she was in the emergency department was complaining of severe rectal pain. She does have external hemorrhoids which are not thrombosed. She wanted her scheduled pain medication. I explained that this is extremely constipating and would only make her symptoms worse. I offered Valium, however the patient declined. The patient is comfortable being discharged home. She did also receive magnesium citrate the emergency department. I encouraged the importance of high -fiber diet and drinking plenty of fluids. She will return if she has any other concerning symptoms. X-rays reveal no evidence of bowel obstruction. I do not think additional imaging studies are indicated. Differential Diagnosis: Including but not limited to constipation, electrolyte abnormality, bowel obstruction, hemorrhoids - Data Points Medications Given: Discontinued Medications Glycerin (Glycerin Adult) 1 each OR ONCE ONE Stop: 01/14/18 12:22 Last Admin: 01/14/18 12:28 Dose: 1 each Magnesium Citrate (Magnesium Citrate) 300 ml PO ONCE ONE Stop: 01/14/18 12:12 Last Admin: 01/14/18 12:22 Dose: 1 btl Departure - Departure Disposition: Home, Routine, Self-Care Clinical Impression: Rectal pain Constipation Qualifiers: Constipation type: unspecified constipation type Qualified Code(s): K59.00 - Constipation, unspecified Hemorrhoids Qualifiers: Hemorrhoid type: unspecified Qualified Code(s): K64.9 - Unspecified hemorrhoids Condition: Fair Referrals: Ana Cristina Lyn, [Primary Care Provider] - 1-2 days without fail
== END 2018-01-14 14:03 | disposition home or self-care (01) ==
DX: K59.00 Constipation, unspecified (principal); K64.4 Residual hemorrhoidal skin tags; I10 Essential (primary) hypertension; Z87.891 Personal history of nicotine dependence

== ENCOUNTER 2018-03-09 15:34 | Emergency (ER) | payer OTHER, MEDICAID ==
[2018-03-09 15:42] VITALS: BP 104/69
--- NOTE | 2018-03-09 16:14 | EDPHY ---
H & P Stated Complaint: cough Time Seen by Provider: 03/09/18 16:13 HPI/ROS: CHIEF COMPLAINT: Cough HISTORY OF PRESENT ILLNESS: The patient has a history of chronic bronchitis and is on oxygen at night. She presents to the ED after she has developed an acute cough and reportedly had a room air oxygen saturation of 89% at home. The patient has been hospitalized for bronchitis and pneumonia in the past. Her most recent episode was secondary a virus. She has not been on recent antibiotics. She has not been on steroids recently. The patient does use Advair and albuterol at home. She denies any asymmetric calf pain or swelling. She denies any pleuritic chest pain. She denies any additional acute complaints. REVIEW OF SYSTEMS: A comprehensive 10 point review of systems is otherwise negative aside from elements mentioned in the history of present illness. Source: Patient Exam Limitations: No limitations - Personal History Current Tetanus/Diphtheria Vaccine: Yes Current Tetanus Diphtheria and Acellular Pertussis (TDAP): Yes Tetanus Vaccine Date: < 10 years - Medical/Surgical History Hx Asthma: No Hx Chronic Respiratory Disease: Yes Hx Diabetes: No Hx Cardiac Disease: No Hx Renal Disease: No Hx Cirrhosis: No Hx Alcoholism: No Hx HIV/AIDS: No Hx Splenectomy or Spleen Trauma: No Other PMH: chronic back pain, hypertension, depression, neck problems, ovarian cysts, right knee bursa sac removal, tubal ligation, tonsillectomy, osteoporosis - Social History Smoking Status: Current every day smoker - Physical Exam Exam: General Appearance: Alert, no distress Eyes: Pupils equal and round no pallor or injection ENT, Mouth: Mucous membranes moist Respiratory: There are no retractions, lungs are clear to auscultation Cardiovascular: Regular rate and rhythm Gastrointestinal: Abdomen is soft and nontender, no masses, bowel sounds normal Neurological: 5/5 strength noted all 4 extremities Skin: Warm and dry, no rashes Musculoskeletal: Neck is supple nontender Extremities: symmetrical, full range of motion Psychiatric: Patient is oriented X 3, there is no agitation Constitutional: Initial Vital Signs Temperature (C) 37.3 C 03/09/18 15:39 Heart Rate 79 03/09/18 15:39 Respiratory Rate 16 03/09/18 15:39 Blood Pressure 104/69 03/09/18 15:39 O2 Sat (%) 91 L 03/09/18 15:39 O2 Delivery Mode Room Air Allergies/Adverse Reactions: No Known Allergies Allergy (Verified 03/09/18 15:39) Home Medications: Medication Instructions Recorded ARIPiprazole [Abilify 10 mg (*)] 10 mg PO DAILY 09/27/16 Amitriptyline HCl [Elavil] 25 mg PO HS 09/27/16 DULoxetine [Cymbalta 30 MG (*)] 30 mg PO DAILY 09/27/16 Fluticasone Nasal [Flonase Nasal 1 sprays NASAL DAILY PRN 09/27/16 [place]] Hydrochlorothiazide [HCTZ (*)] 25 mg PO DAILY 09/27/16 Ibuprofen [Motrin (*)] 800 mg PO Q6 PRN 09/27/16 Lidocaine 5% [Lidoderm 5% Patch] 1 ea TD DAILY 09/27/16 Linaclotide [Linzess] 290 mcg PO DAILY 09/27/16 Morphine Sulfate [Ms Contin] 15 mg PO Q6H 09/27/16 Olopatadine HCl [Pataday] 1 drop EACHEYE HS PRN 09/27/16 Tizanidine HCl 4 mg PO QID PRN 09/27/16 oxyCODONE IR [Oxycodone Ir (*)] 20 mg PO QID 09/27/16 Atorvastatin Calcium [Lipitor 10 10 mg PO DAILY 12/05/16 mg (*)] Albuterol [Proventil Inhaler HFA 1 - 2 puffs IH Q4H PRN 04/28/17 (*)] Fluticasone/Salmeter 250/50Mcg 1 puffs IH BID 09/21/17 [Advair 250/50 (*)] Famotidine [Pepcid 20 MG (*)] 20 mg PO BID #30 tab 09/26/17 Ipratropium/Albuterol [Duoneb (*)] 3 ml IH QID 30 Days #120 deyvial 09/26/17 Cetirizine [ZyrTEC 10 mg (*)] 10 mg PO DAILY tab 09/29/17 predniSONE 20 mg PO DAILY #6 tablet 09/29/17 Azithromycin [Zithromax] 250 mg PO DAILY #6 tab 03/09/18 predniSONE [prednisone 20mg (RX)] 3 tab PO DAILY #15 tab 03/09/18 Medical Decision Making - Diagnostics Imaging Results: Imaging Impressions Chest X-Ray 03/09/18 16:06 Impression: 1. Prominence of perihilar interstitial markings and peribronchial cuffing. Findings are nonspecific but can be seen with bronchitis, reactive airway disease, or viral process. 2. Possible superimposed patchy infiltrates/pneumonia right mid to lower lung and left lung base. Consider follow-up after treatment to confirm resolution. ED Course/Re-evaluation: The patient presents the ED for evaluation of a cough. Her oxygen saturation is noted to be 91-93% on room air. The patient does have a history of chronic bronchitis. The patient did undergo a chest x-ray demonstrated a small patchy infiltrate at the lung base. The patient is nontoxic and well-appearing. The patient will be discharged home with prednisone and azithromycin. Re-evaluated the patient at 4:40 p.m.. She is comfortable going home. She does understand follow [facility] the next [facility]. She will return to the ED for any worsening respiratory symptoms. She will continue her inhalers as typically prescribed. Differential Diagnosis: Differential diagnosis considered includes asthma, bronchitis, pneumonia Departure - Departure Disposition: Home, Routine, Self-Care Clinical Impression: Chronic obstructive pulmonary disease with acute exacerbation, Pneumonia Condition: Good Instructions: COPD (Chronic Obstructive Pulmonary Disease) (ED) Additional Instructions: 1. Take antibiotics as directed. 2. Prednisone as directed. 3. Use oxygen as needed at home. 4. Return to the ED for markedly worsening respiratory symptoms or other concerns. Referrals: Ana Cristina Lyn DO [Primary Care Provider] - As per Instructions
--- NOTE | 2018-03-13 11:12 | ASMTCMCOM ---
CM Note CM Note Notes: Late Entry from 03/10/18: Followed up with [facility] and spoke w/Darcie. Pt is followed by Ana Cristina Lyn and her last visit w/her was 02/03/18. CM requested PC reach out to the patient and schedule a follow-up appt and also consider providing a referral to a musical engineer due to pt's chronic bronchitis and acute cough. Darcie will relay info and have staff reach out to pt. CM available for further assistance if needed. Date Signed: 03/13/2018 11:12 AM Electronically Signed By:Jessika Arreola RN
== END 2018-03-09 16:50 | disposition home or self-care (01) ==
DX: J44.1 Chronic obstructive pulmonary disease with (acute) exacerbation (principal); J18.9 Pneumonia, unspecified organism; F17.210 Nicotine dependence, cigarettes, uncomplicated; M54.9 Dorsalgia, unspecified; I10 Essential (primary) hypertension; F32.9 Major depressive disorder, single episode, unspecified

== ENCOUNTER → 2018-07-27 | Outpatient (CLI) | payer OTHER, MEDICAID | LOC: BMCIMAGING 09:42 | PROVIDERS: ATTEND Family Medicine | DX: Z03.89 Encounter for observation for other suspected diseases and conditions ruled out (principal) ==

== ENCOUNTER → 2018-11-23 | Outpatient (CLI) | payer OTHER, MEDICAID | LOC: FIMAGING 08:50 | PROVIDERS: ATTEND Family Medicine | DX: Z12.31 Encounter for screening mammogram for malignant neoplasm of breast (principal) ==